=== PATIENT | male | born 1950 | race Caucasian/White ===

== ENCOUNTER 2017-09-27 08:02 | Outpatient (CLI) | payer MEDICARE ==
[~2017-09-27] VITALS: Ht 177.8 cm; Wt 129.6 kg
--- NOTE | ~2017-09-27 | HEMODYNAMI ---
PATIENT:SERVANDO AGUILAR MEDICAL RECORD: [id number] : 50 [facility] [id number] ADMISSION DATE: 09/27/17 Generatedon:09/28/201711:20 Patient name: SERVANDO AGUILAR Patient #: [id number] SSN: [id number] : 1950 Date of study: 09/28/2017 Page: Of Hemodynamic Procedure Report Patient Data Patient Demographics Procedure consent was obtained First Name: SERVANDO Gender: Male Last Name: JEFF : 1950 Middle Initial: R Age: 67 year(s) Patient #: [id number] Race: SSN: [id number] Additional ID: [id number] Contact details [address]: [address] [place] [address] State: [place] City: [place] Zip code: [address] Admission Admission Data Admission Date: 09/27/2017 Admission Time: 8:02 Room #: 2123 Lab Results Lab Result Date: 09/27/2017 Lab Result Time: 0:00 Biochemistry Name Units Result Min Max BUN mg/dl 23 --(----)-* 7 18 Creatinine mg/dl 1.1 --(--*-)-- 0.6 1.3 CBC Name Units Result Min Max Hemoglobin g/dl 13.6 --(*---)-- 13.5 17.5 Procedure Procedure Types Cath Procedure PCI Procedure Coronary Stent Coronary Stent Initial Procedure Description Procedure Date Procedure Date: 09/28/2017 Procedure Start Time: 11:02 Procedure End Time: 11:19 Procedure Staff Name Function Marline Mccoy RT Scrub Jorgito Adams RN Nurse Romulo Rojas MD Performing Physician Lupe Ball RT Monitor Procedure Data Cath Procedure Fluoroscopy Diagnostic fluoroscopy Total fluoroscopy Time: 1.1 time: 1.1 min min Diagnostic fluoroscopy Total fluoroscopy dose: 910 dose: 910 mGy mGy Contrast Material Contrast Material Type Amount (ml) Isovue 300 69 Entry Location Entry Primary Successful Side Size Upsize Upsize Entry Closure Succes sful Closure Location (Fr) 1 (Fr) 2 (Fr) Remarks Device Remarks Femoral Right 7 Fr Exoseal Fem stop artery Short for precaution Estimated blood loss: 10 ml Procedure Complications No complications Procedure Medications Medication Administration Route Dosage Heparin Bolus I.V. 5000 units Oxygen NC 2 l/min Lidocaine 2% added to field 20 Heparin Flush Bag added to field 2 bags (1000units/500ml NS) 0.9% NaCl I.V. 100 ml/hr Versed I.V. 1 mg Fentanyl I.V. 50 mcg Versed I.V. 1 mg Fentanyl I.V. 50 mcg Hemodynamics Rest HGB: 13.6 (g/dl) Heart Rate: 62 (bpm) Snapshots Pre Cath Intra NCS Post Cath Vital Signs Time Heart Resp SPO2 etCO2 NIBP (mmHg) Rhythm Pain Sedation Rate (ipm) (%) (mmHg) Status Level (bpm) 10:43:24 59 19 95 31.3 144/84(114) NSR 0 (11) 10(A) , No pain 10:47:46 62 15 97 36.6 137/80(113) NSR 0 (11) 10(A) , No pain 11:02:12 57 16 97 30.8 124/75(96) NSR 0 (11) 10(A) , No pain 11:09:12 58 14 93 20.2 113/70(93) NSR 0 (11) 9(A) , No pain 11:16:20 59 18 94 11.2 119/77(105) NSR 0 (11) 10(A) , No pain Medications Time Medication Route Dose Verified Delivered Reason Notes Effectiveness by by 10:45:17 Oxygen NC 2 Romulo Jamieie used for l/min Bob Adams RN procedure 10:45:22 Lidocaine 2% added 20ml Romulo Sebastian for local to vial Bob Rojas MD anesthetic field 10:45:28 Heparin Flush added 2 Romulo Romulo used for Bag to bags Bob Rojas MD procedure (1000units/500ml field NS) 10:45:36 0.9% NaCl I.V. 100 Romulo Buffie Per physician ml/hr Bob Adams RN 11:01:45 Versed I.V. 1 mg Romulo Bull for sedation Bob Adams RN 11:01:50 Fentanyl I.V. 50 Romulo Bull for sedation mcg Bob Adams RN 11:02:58 Heparin Bolus I.V. 5000 Romulo Bull for verifi ed units Bob Adams RN anticoagulation with dr rojas 11:10:01 Versed I.V. 1 mg Romulo Bull for sedation Bob Adams RN 11:10:05 Fentanyl I.V. 50 Romulo Bull for sedation mcg Bob Adams RN Procedure Log Time Note 10:30:00 Lupe Ball RT(R) sent for patient. Start room use. 10:42:01 Time tracking: Regular hours (M-F 7:00 - 5:00) 10:42:05 Plan of Care:Hemodynamics will remain stable., Cardiac rhythm will remain stable., Comfort level will be maintained., Respiratory function will remain adequate., Patient/ family verbilizes understanding of procedure., Procedure tolerated without complication., Recovers from procedure without complications.. 10:42:16 Patient received from Med II to CCL 2 Alert and oriented. Tansferred to table in Supine position. 10:42:17 Correct patient and procedure confirmed by team. 10:42:17 Warm blankets applied, and vega hugger turned on for patient comfort. 10:42:19 Signed procedure consent form obtained from patient. 10:42:20 ECG and BP/O2 sat monitors applied to patient. 10:42:21 Vital chart was started 10:42:22 Baseline sample Acquired. 10:42:25 Rhythm: sinus rhythm 10:42:26 Full Disclosure recording started 10:42:30 H&P Date Dictated: 09/28/2017 Within 30 days and on chart., H&P Addendum completed by physician on day of procedure. (MUST COMPLETE FOR ALL OUTPATIENTS). 10:42:32 Pre-op teaching completed and patient verbalized understanding. 10:42:32 Pre-procedure instructions explained to patient. 10:42:34 Family in patients room. 10:42:36 Patient NPO since Midnight. 10:42:37 Is the patient allergic to Iodine/contrast media? No. 10:42:38 Was the patient premedicated? No 10:42:40 Is patient on blood thinner?Yes 10:42:42 ACC The patient was administered the following blood thiners within the last 24 hours: ACCPlavix 10:45:09 Patient diabetic? No. 10:45:17 Oxygen 2 l/min NC was administered by Jorgito Adams RN; used for procedure; 10:45:19 Snore? Yes 10:45:20 Sleep apnea? Yes 10:45:21 Deviated septum? No 10:45:22 Lidocaine 2% 20ml vial added to field was administered by Romulo Rojas MD; for local anesthetic; 10:45:26 Dentures? No ? 10:45:28 Heparin Flush Bag (1000units/500ml NS) 2 bags added to field was administered by Romulo Rojas MD; used for procedure; 10:45:31 Patient pain scale 0/10 ?. 10:45:36 0.9% NaCl 100 ml/hr I.V. was administered by Jorgito Adams RN; Per physician; 10:45:39 IV patent on arrival in left forearm with 0.9% NaCl at [facility]. 10:45:43 Lab results completed and on chart. 10:45:46 Right groin area was prepped with chlora-prep and draped in sterile fashion 10:45:47 Alarms reviewed by R. N. 10:45:48 Physician paged 10:45:48 Sharps counted by scrub and verified by R.N. 10:46:38 Use device set Femoral Dx 11:00:54 Physician arrived 11:00:54 --------ALL STOP TIME OUT------ 11:00:55 Final Timeout: patient, procedure, and site verified with staff and physician. All members of the team are in agreement. 11:00:57 Right groin site verified by team. 11:01:03 Physical assessment completed. ASA score P 2 - A patient with mild systemic disease as per Romulo Rojas MD. 11:01:07 Sedation plan: IV Moderate Sedation Medication:Versed, Fentanyl 11:01:35 Zero performed for pressure channel P1 11:01:45 Versed 1 mg I.V. was administered by Jorgito Adams RN; for sedation; 11:01:50 Fentanyl 50 mcg I.V. was administered by Jorgito Adams RN; for sedation; 11:02:14 Procedure started. 11:02:14 Full Disclosure recording started 11:02:22 Local anesthetic to right femoral artery with Lidocaine 2% by Romulo Rojas MD.INITIAL ACCESS ONLY 11:02:36 A 7 Fr Short sheath was inserted into the Right Femoral artery 11:02:56 GUIDE 7FR AR 2.0 catheter ([id number]) opened to sterile field. 11:02:58 Heparin Bolus 5000 units I.V. was administered by Jorgito Adams RN; for anticoagulation; verified with dr roajs 11:02:59 Proceeding to intervention. 11:03:07 7 Fr AR2 guide catheter was inserted over the wire 11:03:39 choice pt ex wire advanced. 11:05:27 Wire removed. 11:06:11 Balloon removed over the wire. 11:06:43 WHISPER 300cm guide wire ([id number]) opened to sterile field. 11:07:37 The EUPHORA 2.5 x 15 Balloon ([id number]) was advanced and then removed because of failure to cross lesion 11:08:07 Inflate balloon Inflation number: 1 A EMERGE OTW 2.5 x 15 balloon ([id number]) was prepped and advanced across the Dist RCA, then inflated to 9 RENNY for 0:05 (min:sec). 11:08:14 Balloon removed over the wire. 11:09:43 Place stent Inflation Number: 2 A INTEGRITY OTW 2.5 X 12 stent ([id number]) was prepped and advanced across the Dist RCA. The stent was deployed at 11 RENNY for 0:10 (min:sec). 11:10:01 Versed 1 mg I.V. was administered by Jorgito Adams RN; for sedation; 11:10:05 Fentanyl 50 mcg I.V. was administered by Jorgito Adams RN; for sedation; 11:11:32 EXOSEAL 7Fr (EX700) opened to sterile field. 11:11:53 Wire removed. 11:11:54 Guide catheter removed. 11:12:21 FEMSTOP Gold ([id number]) opened to sterile field. 11:12:53 Sheath removed intact; hemostasis achieved with Exoseal to the Right Femoral artery. 11:12:55 Procedure ended.(Physican Out) 11:13:05 Fluoroscopy time 01.10 minutes. 11:13:09 Fluoroscopy dose: 910 mGy 11:13:09 Flurop Dose total: 910 11:13:12 Contrast amount:Isovue 300 69ml. 11:13:13 Sharps counted by scrub and verified by R.N. 11:13:25 Post right femoral artery:unstable 11:13:45 Femstop placed over the right femoral artery at 100 mmHg. Hemostasis achieved. 11:13:54 Post-procedure physical assessment completed. ASA score P 2 - A patient with mild systemic disease as per Romulo Rojas MD. 11:13:57 Post procedure rhythm: unchanged. 11:14:00 Estimated blood loss: 10 ml 11:14:01 Post procedure instruction explained to patient.Patient verbalizes understanding. 11:14:12 Procedure type changed to Cath procedure, PCI procedure, Coronary Stent, Coronary Stent Initial 11:14:14 Procedure and supply charges have been captured, reviewed, submitted and are correct. 11:14:48 Use device set Femoral Dx 11:14:50 ACIST Syringe (36107) opened to sterile field. 11:14:51 Bag Decanter (2002S) opened to sterile field. 11:14:52 Medline Cath Pack ([id number]) opened to sterile field. 11:14:54 DIAGNOSTIC WIRE .035 260cm J wire (847669) opened to sterile field. 11:14:55 ACIST Hand Control (98470) opened to sterile field. 11:14:56 ACIST Manifold (93896) opened to sterile field. 11:14:58 Tegaderm 4 x 4 (1626W) opened to sterile field. 11:14:59 PERCUTANEOUS ENTRY 19GA needle opened to sterile field. 11:15:15 Procedure and supply charges have been captured, reviewed, submitted and are correct. 11:15:37 Procedure Complication : No complications 11:18:59 See physician's report for complete and final results. 11:19:03 Patient transfered to [facility] with Stretcher. 11:19:06 Procedure ended. 11:19:06 Full Disclosure recording stopped Intervention Summary Intervention Notes Time ActionType Lesion and Equipment Action# Pressure Duration Attributes Used 11:07:37 Discard EUPHORA 2.5 Balloon x 15 Balloon ([id number]) 11:08:07 Inflate Dist RCA EMERGE OTW 1 9 00:05 balloon 2.5 x 15 balloon ([id number]) 11:09:43 Place stent Dist RCA INTEGRITY 2 11 00:10 OTW 2.5 X 12 stent ([id number]) Device Usage Item Name Manufacture Quantity Catalog Number Hospital Part Current Min imal Lot# / Charge Number Stock Stock Serial# Code GUIDE 7FR AR Medtronic 1 [id number] 785874 041934 0 2.0 catheter ([id number]) WHISPER Galaviz 1 [id number] 124185 428533 517448 5 300cm guide Vascular wire ([id number]) EUPHORA 2.5 Medtronic 1 [id number] 188995 691343 042595 5 [id number] x 15 Balloon ([id number]) EMERGE OTW [place] 1 [id number] 112147 603435 620778 5 [id number] 2.5 x 15 Scientific balloon ([id number]) INTEGRITY Medtronic 1 [id number] 897093 751574 3 [id number] OTW 2.5 X 12 stent ([id number]) EXOSEAL 7Fr Cardinal 1 EX700 696121 291663 042774 5 (EX700) Health FEMSTOP Gold [facility] [place] 1 [id number] 783071 505344 794595 5 ([id number]) ACIST Acist 1 29738 676584 837766 331218 20 Syringe Medical (86486) Systems Inc Bag Decanter Microtek 1 2002S 657851 87034 329615 5 (2002S) Medical Inc. Medline Cath Cardinal 1 [id number] 275601 87286 970585 5 Pack Health ([id number]) DIAGNOSTIC [facility] [place] 1 791537 671127 701662 521824 30 WIRE .035 260cm J wire (062296) ACIST Hand Acist 1 41343 162280 753939 834143 5 Control Medical (58036) Systems Inc ACIST Acist 1 35586 025823 606325 653613 5 Manifold Medical (84672) Systems Inc Tegaderm 4 x 3M 1 1626W 537746 530747 640042 5 4 (1626W) PERCUTANEOUS Cook Medical 1 O58483 400905 806551 5 ENTRY 19GA needle Signature Audit [place] Stage Time Signature Unsigned Intra-Procedure 09/28/2017 Lupe Ball 11:20:07 AM RT(R) Signatures Monitor : Lupe Ball Signature : RT Date : Time : [id number] [place] [address]
--- NOTE | ~2017-09-27 | DS ---
PATIENT:SERVANDO AGUILAR :50 MEDICAL RECORD: [id number] DISCHARGE SUMMARY ADMISSION DATE: 09/27/17 DISCHARGE DATE: 09/28/17 DISCHARGE DIAGNOSES: 1. Unstable angina. 2. Coronary artery disease. 3. PTCA stent RCA and LAD this admission. HOSPITAL COURSE: Mr. Aguilar presents with anginal symptomatology, found to have 3-vessel coronary artery disease, underwent successful PTCA stent of the RCA and LAD, was discharged home. He will follow up in 1 week for PTCA stent of the left circumflex. He was previously on Coumadin. He is maintaining sinus rhythm. His Coumadin was discontinued. He was discharged on aspirin and Plavix. TRANSINT:[id number] Voice Confirmation ID: [id number] DOCUMENT ID: [id number] AHSAN CASTANEDA MD at 1403 CC: [id number] DICTATION DATE: 09/28/17 1115 HEAVY FORGING MACHINE OPERATOR: 09/28/17 1241 DEP CLI 09/28/17 [address] [place] [address]
--- NOTE | ~2017-09-27 | OP ---
PATIENT NAME: SERVANDO AGUILAR MEDICAL RECORD: [id number] :50 LOCATION:D.CAT ADMISSION DATE: SURGEON: AHSAN CASTANEDA MD DATE OF OPERATION: 09/27/2017 PROCEDURES: 1. PTCA and stent of LAD diagonal. 2. Left heart catheterization. 3. Selective coronary angiography. 4. Left ventriculogram. INDICATION: Angina and coronary artery disease. PROCEDURE IN DETAIL: After informed consent was obtained and after a detailed explanation of risks, benefits as well as alternative therapies, the patient elected to proceed with angiogram and angioplasty. The right radial area was prepped and draped in normal sterile fashion. Right radial artery was cannulated via modified Seldinger technique with placement of 6-Kazakh sheath. All catheters exchanged through this sheath. FINDINGS: Left ventriculogram was performed in standard 30-degree DONALD view, reveals good cardiac wall motion throughout all segments. Overall ejection fraction estimated 60%. SELECTIVE CORONARY ANGIOGRAPHY: 1. Left main is with no significant angiographic disease. 2. Left anterior descending has previously placed stents, these are widely patent. There is a relatively large diagonal system that has 85% stenosis in the proximal aspect. 3. Left circumflex has at least 2 areas of 80% to 85% stenosis. 4. Right coronary has moderate irregularities. In the distal right coronary, there is at least an 80% stenosis. PTCA AND STENT OF THE LAD DIAGONAL: The stent used was 2.5 x 18 mm Integrity. Result was 0% residual stenosis. OVERALL IMPRESSION: Successful PTCA and stent of the LAD diagonal going from 85% initial stenosis to 0% residual. TRANSINT:[id number] Voice Confirmation ID: [id number] DOCUMENT ID: [id number] AHSAN CASTANEDA MD at 1403 CC: [id number] DICTATION DATE: 09/27/17 1128 DELIVERY DRIVER/CUSTOMER SERVICE: 09/27/17 1327 DEP CLI 09/28/[address] [address]
--- NOTE | ~2017-09-27 | OP ---
PATIENT NAME: SERVANDO AGUILAR MEDICAL RECORD: [id number] :50 LOCATION:D.CAT ADMISSION DATE: SURGEON: AHSAN CASTANEDA MD DATE OF OPERATION: 09/28/2017 PROCEDURES: 1. PTCA stent RCA. 2. Selective coronary angiography. INDICATION: Angina and coronary artery disease. PROCEDURE IN DETAIL: After informed consent was obtained and after a detailed description of the risks, benefits as well as alternative therapies, the patient elected to proceed with angiogram and angioplasty. The right femoral area was prepped and draped in normal sterile fashion. Right femoral artery was cannulated via modified Seldinger technique with placement of 7-[place]ozambican sheath. All catheters exchanged through this sheath. FINDINGS: The right coronary artery has 90% stenosis distally. This was addressed with a 2.5 x 12 mm Integrity. Result was 0% residual stenosis. OVERALL IMPRESSION: Successful percutaneous transluminal coronary angioplasty stent of the right coronary artery going from 90% initial stenosis to 0% residual stenosis. TRANSINT:[id number] Voice Confirmation ID: [id number] DOCUMENT ID: [id number] AHSAN CASTANEDA MD at 1403 CC: [id number] DICTATION DATE: 09/28/17 1116 JEWELRY REPAIRER: 09/28/17 1141 DEP CLI 09/28/17 [id number] [place] [address]
--- NOTE | ~2017-09-27 | HEMODYNAMI ---
PATIENT:SERVANDO AGUILAR MEDICAL RECORD: [id number] : 50 [id number] ADMISSION DATE: 09/27/17 Generatedon:09/27/201711:34 Patient name: SERVANDO AGUILAR Patient #: [id number] SSN: [id number] : 1950 Date of study: 09/27/2017 Page: Of Hemodynamic Procedure Report Patient Data Patient Demographics Procedure consent was obtained First Name: SERVANDO Gender: Male Last Name: JEFF : 1950 [facility] Initial: R Age: 67 year(s) Patient #: [id number] Race: SSN: [id number] Additional ID: [id number] Contact details Address: [address] [place] [address] ROAD State: [place] City: [place] Zip code: [address] Admission Admission Data Admission Date: 09/27/2017 Admission Time: 8:02 Lab Results Lab Result Date: 09/27/2017 Lab Result Time: 0:00 Biochemistry Name Units Result Min Max BUN mg/dl 23 --(----)-* 7 18 Creatinine mg/dl 1.1 --(--*-)-- 0.6 1.3 CBC Name Units Result Min Max Hemoglobin g/dl 13.6 --(*---)-- 13.5 17.5 Procedure Procedure Types Cath Procedure Diagnostic Procedure [facility] w/Coronaries Sedation Charges Moderate Sedation up to 15 minutes PCI Procedure Coronary Stent Coronary Stent Initial Procedure Description Procedure Date Procedure Date: 09/27/2017 Procedure Start Time: 11:10 Procedure End Time: 11:26 Procedure Staff Name Function Romulo Rojas MD Performing Physician Marline Mccoy RT Monitor Lupe Ball RT Scrub Aydin Knapp RN Nurse Procedure Data Cath Procedure Fluoroscopy Diagnostic fluoroscopy Total fluoroscopy Time: 4.2 time: 4.2 min min Diagnostic fluoroscopy Total fluoroscopy dose: dose: 1244 mGy 1244 mGy Contrast Material Contrast Material Type Amount (ml) Isovue 300 89 Entry Location Entry Primary Successful Side Size Upsize Upsize Entry Closure Duran ccessful Closure Location (Fr) 1 (Fr) 2 (Fr) Remarks Device Remarks Radial Right 6 Fr Mechanical artery Short Compression Estimated blood loss: 5 ml Diagnostic catheters Device Type Used For End Catheter Placement DIAGNOSTIC Troy 110cm 5 Multi-vessel Fr catheter ([id number]) Angiography Procedure Complications No complications Procedure Medications Medication Administration Route Dosage Oxygen etCO2 Nasal cannula 2 l/min Heparin Flush Bag added to field 2 bags (1000units/500ml NS) 0.9% NaCl I.V. 100 ml/hr Radial Cocktail added to field 1 syringe (Verapomil 2mg/Nitro 400mcg/Heparin 1500units) Fentanyl I.V. 50 mcg Versed I.V. 1 mg Fentanyl I.V. 50 mcg Versed I.V. 1 mg Radial Cocktail I.A. 1 syringe (Verapomil 2mg/Nitro 400mcg/Heparin 1500units) Heparin Bolus I.V. 4000 units Integrilin (Bolus I.V. 11.2 ml 2mg/ml) Integrilin (Bolus wasted 8.8 ml 2mg/ml) Fentanyl I.V. 25 mcg Plavix P.O. 600 mg Hemodynamics Rest HGB: 13.6 (g/dl) Heart Rate: 68 (bpm) Pressure Samples Time Site Value (mmHg) Purpose Heart Use Rate(bpm) 11:14 LV 61/22,24 Snapshot 88 Snapshots Pre Cath Intra NCS Post Cath Vital Signs Time Heart Resp SPO2 etCO2 NIBP (mmHg) Rhythm Pain Sedation Rate (ipm) (%) (mmHg) Status Level (bpm) 10:44:48 66 16 94 0 142/89(112) NSR 0 (11) 10(A) , No pain 10:49:11 68 17 98 37.5 139/89(121) NSR 0 (11) 10(A) , No pain 10:53:37 65 17 95 34.5 131/79(108) NSR 0 (11) 10(A) , No pain 10:57:55 62 18 94 0 127/87(104) NSR 0 (11) 10(A) , No pain 11:02:19 64 19 95 15.7 120/79(109) NSR 0 (11) 10(A) , No pain 11:06:39 57 19 96 36.8 122/79(91) NSR 0 (11) 10(A) , No pain 11:11:01 61 19 93 33.8 121/76(102) NSR 0 (11) 10(A) , No pain 11:15:28 64 17 93 21.7 102/67(92) NSR 0 (11) 9(A) , No pain 11:19:44 66 18 94 0 119/73(86) NSR 0 (11) 9(A) , No pain 11:24:04 68 18 94 12.7 116/72(89) NSR 0 (11) 9(A) , No pain 11:29:38 64 18 94 31.5 121/77(110) NSR 0 (11) 10(A) , No pain Medications Time Medication Route Dose Verified Delivered Reason Not es Effectiveness by by 10:50:12 Oxygen etCO2 2 l/min Romulo Perrin Per physician Nasal Bob Knapp RN cannula 10:50:21 Heparin Flush added 2 bags Romulo Perrin used for Bag to Bob Knapp RN procedure (1000units/500ml field NS) 10:50:29 0.9% NaCl I.V. 100 Romulo Perrin Per physician ml/hr Bob Knapp RN 10:50:36 Radial Cocktail added 1 Romulo Perrin used for (Verapomil to syringe Bob Knapp RN procedure 2mg/Nitro field 400mcg/Heparin 1500units) 11:10:48 Fentanyl I.V. 50 mcg Romulo Perrin for sedation Bob Knapp RN 11:10:55 Versed I.V. 1 mg Romulo Perrin for sedation Bob Knapp RN 11:12:28 Fentanyl I.V. 50 mcg Romulo Perrin for sedation Bob Knapp RN 11:12:32 Versed I.V. 1 mg Romulo Perrin for sedation Bob Knapp RN 11:12:39 Radial Cocktail I.A. 1 Romulo Sebastian for (Verapomil syringe Bob Rojas MD vasodilation 2mg/Nitro 400mcg/Heparin 1500units) 11:18:46 Fentanyl I.V. 25 mcg Romulo Perrin for sedation Bob Knapp RN 11:20:24 Heparin Bolus I.V. 4000 Romulo Perrin for units Bob Knapp RN anticoagulation 11:20:36 Integrilin I.V. 11.2 ml Romulo Perrin for (Bolus 2mg/ml) Bob Knapp RN antiplatelet therapy 11:23:37 Integrilin wasted 8.8 ml Romulo Perrin for (Bolus 2mg/ml) Bob Knapp RN antiplatelet therapy 11:25:00 Plavix P.O. 600 mg Romulo Perrin for Bob Knapp RN antiplatelet therapy Procedure Log Time Note 10:20:18 Marline Mccoy RT(R) sent for patient. Start room use. 10:31:01 Informed consent obtained and on chart 10:31:19 Time tracking: Regular hours (M-F 7:00 - 5:00) 10:31:22 Plan of Care:Hemodynamics will remain stable., Cardiac rhythm will remain stable., Comfort level will be maintained., Respiratory function will remain adequate., Patient/ family verbilizes understanding of procedure., Procedure tolerated without complication., Recovers from procedure without complications.. 10:43:32 Vital chart was started 10:46:35 Patient received from Pre/Post Procedure Room to CCL 2 Alert and oriented. Tansferred to table in Supine position. 10:46:36 Warm blankets applied, and vega hugger turned on for patient comfort. 10:46:37 Correct patient and procedure confirmed by team. 10:46:37 ECG and BP/O2 sat monitors applied to patient. 10:46:38 Baseline sample Acquired. 10:46:44 Rhythm: sinus rhythm 10:46:45 Full Disclosure recording started 10:46:54 H&P Date Dictated: 09/27/2017 Within 30 days and on chart., H&P Addendum completed by physician on day of procedure. (MUST COMPLETE FOR ALL OUTPATIENTS). 10:46:55 Pre-procedure instructions explained to patient. 10:46:56 Pre-op teaching completed and patient verbalized understanding. 10:46:58 Family in waiting room. 10:46:59 Patient NPO since Midnight. 10:47:02 Is the patient allergic to Iodine/contrast media? No. 10:47:03 Was the patient premedicated? No 10:47:04 Is patient on blood thinner?Yes 10:48:08 coumadin stopped on 09/23/17 10:48:10 Patient diabetic? Yes. 10:48:12 If diabetic: On Metformin? Yes 10:48:37 If on Metformin: Last Dose? 09/26/2017 10:48:40 Previous problem with sedation/anesthesia? No ? 10:48:42 Snore? Yes 10:48:42 Sleep apnea? Yes 10:48:43 Deviated septum? No 10:48:44 Opens mouth fully? Yes 10:48:45 Sticks out tongue? Yes 10:48:47 Airway obstruction? No ? 10:48:49 Dentures? No ? 10:48:52 Pre procedure: right dorsailis pedis pulse 2+ Normal; easily identifiable; not easily obliterated 10:48:55 Pre procedure: left dorsailis pedis pulse 2+ Normal; easily identifiable; not easily obliterated 10:48:58 Patient pain scale 0/10 ?. 10:49:03 IV patent on arrival in left forearm with 0.9% NaCl at [facility]. 10:49:07 Lab results completed and on chart. 10:49:16 Right Radial & Right Groin area was prepped with chlora-prep and draped in sterile fashion 10:49:17 Alarms reviewed by R. N. 10:49:17 Sharps counted by scrub and verified by R.N. 10:50:12 Oxygen 2 l/min etCO2 Nasal cannula was administered by Aydin Knapp RN; Per physician; 10:50:21 Heparin Flush Bag (1000units/500ml NS) 2 bags added to field was administered by Aydin Knapp RN; used for procedure; 10:50:29 0.9% NaCl 100 ml/hr I.V. was administered by Aydin Knapp RN; Per physician; 10:50:36 Radial Cocktail (Verapomil 2mg/Nitro 400mcg/Heparin 1500units) 1 syringe added to field was administered by Aydin Knapp RN; used for procedure; 11:08:15 Physician arrived 11:08:16 --------ALL STOP TIME OUT------ 11:08:16 Final Timeout: patient, procedure, and site verified with staff and physician. All members of the team are in agreement. 11:08:19 Right Radial & Right Groin site verified by team. 11:08:22 Physical assessment completed. ASA score P 2 - A patient with mild systemic disease as per Romulo Rojas MD. 11:08:25 Sedation plan: IV Moderate Sedation Medication:Versed, Fentanyl 11:08:39 Procedure started. 11:10:43 Local anesthetic to right radial artery with Lidocaine 2% by Romulo Rojas MD.INITIAL ACCESS ONLY 11:10:48 Fentanyl 50 mcg I.V. was administered by Aydin Knapp RN; for sedation; 11:10:52 A 6 Fr Short sheath was inserted into the Right Radial artery 11:10:55 Versed 1 mg I.V. was administered by Aydin Knapp RN; for sedation; :11:25 Use device set Radial Dx or PCI 11:11:27 ACIST Syringe (20380) opened to sterile field. 11:11:27 Medline Cath Pack ([id number]) opened to sterile field. 11:11:27 Bag Decanter (2002S) opened to sterile field. 11:11:28 DIAGNOSTIC WIRE .035 260cm J wire (059043) opened to sterile field. 11:11:28 ACIST Hand Control (91120) opened to sterile field. 11:11:28 ACIST Manifold (94357) opened to sterile field. 11:11:29 Tegaderm 4 x 4 (1626W) opened to sterile field. 11:11:32 MBrace Wrist Support ([id number]) opened to sterile field. 11:11:33 SHEATH 6Fr Prelude Radial ([id number]) opened to sterile field. 11:11:58 Lab Result : BUN 23 mg/dl ::58 Lab Result : Hemoglobin 13.6 g/dl ::58 Lab Result : Creatinine 1.1 mg/dl 11:12:28 Fentanyl 50 mcg I.V. was administered by Aydin Knapp RN; for sedation; 11:12:32 Versed 1 mg I.V. was administered by Aydin Knapp RN; for sedation; ::39 Radial Cocktail (Verapomil 2mg/Nitro 400mcg/Heparin 1500units) 1 syringe I.A. was administered by Romulo Rojas MD; for vasodilation; 11:13:00 A DIAGNOSTIC Troy 110cm 5 Fr catheter ([id number]) was advanced over the wire and used for Multi-vessel Angiography. 11:14:20 LV hemodynamics recorded. 11:14:21 LV gram done using DONALD 11:14:23 Injector settings: Ml/sec: 5, Volume: 15, 11:14:29 EF : 60 % 11:15:46 LCA angiography performed. 11:15:49 Injector settings: Ml/sec: 3, Volume: 6, 11:16:11 CHOICE PT Extra Support 182cm wire ([id number]) opened to sterile field. 11:16:11 INFLATOR Merit BasixCompak (UH0768) opened to sterile field. 11:17:53 GUIDE 6FR EBU 3.5 catheter ([id number]) opened to sterile field. 11:18:02 RCA angiography performed. 11:18:06 Injector settings: Ml/sec: 3, Volume: 6, 11:18:35 Catheter removed. 11:18:36 Proceeding to intervention. 11:18:46 Fentanyl 25 mcg I.V. was administered by Aydin Knapp RN; for sedation; 11:18:49 6 Fr ebu 3.5 guide catheter was inserted over the wire 11:20:24 Heparin Bolus 4000 units I.V. was administered by Aydin Knapp RN; for anticoagulation; 11:20:36 Integrilin (Bolus 2mg/ml) 11.2 ml I.V. was administered by Aydin Knapp RN; for antiplatelet therapy; 11:21:25 choice pt wire advanced. 11:22:28 Inflate balloon Inflation number: 1 A EUPHORA 2.5 x 15 Balloon ([id number]) was prepped and advanced across the 1st Diag, then inflated to 11 RENNY for 0:10 (min:sec). 11:22:34 Balloon removed over the wire. 11:23:37 Integrilin (Bolus 2mg/ml) 8.8 ml wasted was administered by Aydin Knapp RN; for antiplatelet therapy; 11:23:46 Inflate balloon Inflation number: 2 A INTEGRITY RX 2.5 x 18 stent ([id number]) was prepped and advanced across the 1st Diag, then inflated to 11 RENNY for 0:10 (min:sec). 11:24:01 Stent catheter was removed intact over wire. 11:24:02 Wire removed. 11:24:02 Guide catheter removed. 11:25:00 Plavix 600 mg P.O. was administered by Aydin Knapp RN; for antiplatelet therapy; 11:25:19 TR BAND Large ([id number]) opened to sterile field. 11:25:30 Sheath removed intact; hemostasis achieved with Mechanical Compression to the Right Radial artery. 11:25:32 Procedure ended.(Physican Out) 11::47 Fluoroscopy time 04.20 minutes. 11::52 Fluoroscopy dose: 1244 mGy 11::52 Flurop Dose total: 1244 11:25:56 Contrast amount:Isovue 300 89ml. 11::57 Sharps counted by scrub and verified by R.N. 11::58 Insertion/operative site no bleeding no hematoma. 11:26:02 TR band inflated with 10cc of air. 11:26:07 Post right radial artery:stable 11:26:08 Post Procedure Pulses reassessed and unchanged 11:26:11 Post procedure rhythm: unchanged. 11:26:13 Estimated blood loss: 5 ml 11::14 Post procedure instruction explained to patient.Patient verbalizes understanding. 11:26:15 Patient needs reinforcement of post procedure teaching. 11:26:29 Procedure type changed to Cath procedure, Diagnostic procedure, LHC, LHC w/Coronaries, Sedation Charges, Moderate Sedation up to 15 minutes, PCI procedure, Coronary Stent, Coronary Stent Initial 11::29 Procedure and supply charges have been captured, reviewed, submitted and are correct. 11:26:33 Procedure Complication : No complications 11:26:35 Vital chart was stopped 11:26:36 See physician's report for complete and final results. 11:26:44 Report given to Pre/Post Procedure Room. 11::47 Patient transfered to Pre/Post Procedure Room with Stretcher. 11:26:49 Procedure ended. 11:26:49 Full Disclosure recording stopped 11::57 ACC-PCI Only Patient was given prescriptions, or instructed by Romulo Rojas MD to start/continue the following medications upon discharge: Plavix 11:26:58 End room use (Document Last) Intervention Summary Intervention Notes Time ActionType Lesion and Equipment Action# Pressure Duration Attributes Used 11:22:28 Inflate 1st Diag EUPHORA 2.5 1 11 00:10 balloon x 15 Balloon ([id number]) 11:23:46 Inflate 1st Diag INTEGRITY RX 2 11 00:10 balloon 2.5 x 18 stent ([id number]) Device Usage Item Name Manufacture Quantity Catalog Number Hospital Part Current M inimal Lot# / Charge Number Stock Stock Serial# Code ACIST Syringe Acist 1 78229 940397 838172 429524 2 0 (46461) Medical Systems Inc Medline Cath Cardinal 1 [id number] 822175 27356 365514 5 Pack Health ([id number]) Bag Decanter Microtek 1 2001S 177001 49563 668567 5 (2001S) Medical Inc. DIAGNOSTIC WIRE St Ruben 1 355150 646434 267119 362679 3 0 .035 260cm J wire (967059) ACIST Hand Acist 1 60380 583757 017483 093623 5 Control (87925) Medical Systems Inc ACIST Manifold Acist 1 42509 817376 099550 633592 5 (74911) Medical Systems Inc Tegaderm 4 x 4 3M 1 1626W 261456 759288 972406 5 (1626W) MBrace Wrist Advanced 1 140-0250-00 235304 09105 135522 5 Support Vascular ([id number]) Dynamics SHEATH 6Fr Merit 1 [id number] 282198 422552 326799 5 Prelude Radial Medical ([id number]) DIAGNOSTIC Terumo 1 40-4093 435237 663039 961694 5 Troy 110cm 5 Fr catheter (209571) CHOICE PT Extra Steen 1 [id number] 407102 002769 313455 5 Support 182cm Scientific wire ([id number]) INFLATOR Merit Merit 1 WY6026 383903 024160 867070 1 5 Synference (LC4636) GUIDE 6FR EBU Medtronic 1 [id number] 716643 92458 873673 3 3.5 catheter ([id number]) EUPHORA 2.5 x Medtronic 1 [id number] 334625 500811 953155 5 15 Balloon ([id number]) INTEGRITY RX Medtronic 1 [id number] 467393 197360 544589 5 2.5 x 18 stent ([id number]) TR BAND Large Terumo 1 [id number] 074118 844461 541745 4 0 ([id number]) Signature Audit [place] Stage Time Signature Unsigned Intra-Procedure 09/27/2017 Marline Mccoy 11:34:33 AM RT(R) Signatures Monitor : Marline Mccoy RT Signature : Date : Time : [facility] [address] [place] [address]
[2017-09-27] MEDS ORDERED: FUROSEMIDE40 MG PO (08:36)
[2017-09-27] MEDS ORDERED: GLUCOPHAGE1000 MG PO (08:36)
[2017-09-27] MEDS ORDERED: ZESTORETIC 20/21 TAB PO (08:38)
[2017-09-27] MEDS ORDERED: BETAPACE 80 MG80 MG PO (08:38)
[2017-09-27] MEDS ORDERED: PRAVACHOL80 MG PO (08:39)
[2017-09-27] MEDS ORDERED: OMEPRAZOLE20 M1 PO (08:39)
[2017-09-27] MEDS ORDERED: K-DUR20 MEQ PO (08:40)
[2017-09-27] MEDS ORDERED: COUMADIN6 MG PO (08:40)
[2017-09-27] MEDS ORDERED: MIRAPEX0.75 MG PO ×2 (08:41)
[2017-09-27 08:50] VITALS: BP 145/82; BMI 40.8
[2017-09-27 08:57] LABS: BASOPHILS 0.3 % (0-2); EOSINOPHILS 6.6 % (0-7); HEMATOCRIT 40.5 % (42.0-54.0); HEMOGLOBIN 13.6 g/dL (13.5-17.5); IMMATURE GRANULOCYTES 0.3 % (0-5); MCH 29.7 pg (26.0-34.0); MCHC 33.6 g/dL (31.0-37.0); MCV 88.4 fL (80.0-100.0); MEAN PLATELET VOLUME 9.8 fL (7.4-10.4); MONOCYTES 8.1 % (2-11); NEUTROPHILS 71.7 % (40-80); PLATELET COUNT 176 10x3/uL (130-400); RBC 4.58 10x6/uL (4.20-6.10); RDW 13.7 % (11.5-14.5); WBC 6.6 10x3/uL (4.8-10.8)
[2017-09-27 09:05] LABS: INR 1.09 (0.85-1.17); PROTIME 13.7 SECONDS (11.6-15.0)
[2017-09-27 09:30] LABS: ANION GAP 10.7 mmol/L (8-16); CALCIUM 9.1 mg/dL (8.5-10.1); CARBON DIOXIDE 30.8 mmol/L (21.0-32.0); CREATININE - SERUM 1.1 mg/dL (0.6-1.3); POTASSIUM - SERUM 3.5 mmol/L (3.5-5.1)
[2017-09-27 14:19] VITALS: BP 157/82; BMI 40.8
[2017-09-27 16:48] VITALS: BP 121/63
[2017-09-27 20:00] VITALS: BP 146/71
[2017-09-28] VITALS: BP 144/79
[2017-09-28 04:00] VITALS: BP 121/72
[2017-09-28 08:11] VITALS: BP 128/72
[2017-09-28 09:45] VITALS: Ht 177.8 cm; Wt 129.6 kg
[2017-09-28 11:40] VITALS: BP 131/80
[2017-09-28] MEDS ORDERED: PLAVIX75 MG PO (14:53)
[2017-09-28] MEDS ORDERED: ASPIRIN81 MG PO (14:53)
[2017-09-28 15:51] VITALS: BP 132/74
== END 2017-09-28 17:26 | disposition home or self-care (01) ==
LOC: D.M2 08:02 → D.CATH 08:02 → D.M2 13:51 → D.CATH 09-28 17:26
PROVIDERS: Internal Medicine Interventional Cardiology
DX: I25.110 Atherosclerotic heart disease of native coronary artery with unstable angina pectoris (principal); R94.30 Abnormal result of cardiovascular function study, unspecified; I10 Essential (primary) hypertension; E78.5 Hyperlipidemia, unspecified; Z01.812 Encounter for preprocedural laboratory examination

== ENCOUNTER 2017-10-06 07:37 | Outpatient (CLI) | payer MEDICARE ==
[~2017-10-06] VITALS: Ht 177.8 cm; Wt 129.1 kg
--- NOTE | ~2017-10-06 | HP ---
PATIENT: SERVANDO AGUILAR MEDICAL RECORD: [id number] ACCOUNT: [id number] LOCATION:[facility] : 50 ADMISSION DATE: 10/06/17 HISTORY AND PHYSICAL EXAMINATION ADMITTING DIAGNOSES: 1. Angina. 2. Coronary artery disease. 3. Recent PTCA stent RCA and LAD with concomitant disease of the left circumflex. 4. Hypertension. 5. Hyperlipidemia. HISTORY OF PRESENT ILLNESS: Mr. Aguilar presents with unstable anginal symptomatology, found to have 3-vessel coronary artery disease, underwent successful PTCA stent of the RCA and LAD, he is now brought back for PTCA stent of the circumflex. PHYSICAL EXAMINATION: GENERAL APPEARANCE: Well-nourished, well-developed, appears stated age. Level of distress, comfortable. PSYCHIATRIC: Mental status, alert, normal affect. Orientation, oriented to time, place and person. EYES: Lids and conjunctiva, noninjected. No discharge, no pallor. ENT: Lips, teeth, gums, normal dentition. Oropharynx, no cyanosis, no pallor. NECK: Carotid arteries, bilateral normal upstroke, no bruits, no thrills. JUGULAR VEINS: No jugular venous pressure or distention. CERVICAL LYMPH NODES: Nontender, nonenlarged. THYROID: Not enlarged. Nontender. No nodules. LUNGS: Respiratory effort, unlabored. CHEST: Normal curvature. No thoracic deformity. No chest wall tenderness. Percussion, resonant. Auscultation, clear. No wheezes, no rales, no rhonchi. CARDIOVASCULAR: Precordial exam, nondisplaced. No heaves or pericardial thrills. Rate and rhythm, regular. Heart sounds, normal S1, normal S2. No S3, no gallop, no rub. Systolic murmur, not heard. Diastolic murmur, not heard. EXTREMITIES: No cyanosis, no edema. Peripheral pulses, full and equal in all extremities, except as noted. No bruits appreciated. ABDOMEN: Soft, nondistended. Normal aorta. No bruit. Nontender. No masses. Liver, nontender, no hepatomegaly. Spleen, nontender, no splenomegaly. MUSCULOSKELETAL: No joint tenderness. No joint swelling. No erythema. NEUROLOGICAL: Normal gait, normal strength, normal tone. SKIN: Warm and dry. REVIEW OF SYSTEMS: The patient reports easy bruising but reports no swollen glands. The patient reports no fever, no night sweats, no significant weight gain, no significant weight loss. No significant exercise tolerance. The patient reports no dry eyes, no irritation, no vision change. Patient reports no difficulty hearing and no ear pain. Patient reports no frequent nose bleeds or nose and sinus problems. Patient reports on arm pain on exertion. No shortness of breath while lying down. No history of heart murmur. Patient reports no cough, no wheezing or coughing up blood. Patient reports no abdominal pain, no vomiting. Normal appetite. No diarrhea and not vomiting blood. No nausea and no constipation. Patient reports no incontinence. No difficulty urinating. No hematuria. No increased frequency. Patient reports no muscle aches. No weakness, no arthralgias, no back pain. No swelling of the HISTORY AND PHYSICAL [id number] SERVANDO AGUILAR extremities. Patient reports no abnormal mole, no jaundice, no rashes. Reports no loss of consciousness. No weakness and no numbness. No seizures, dizziness, or headaches. The patient reports no depression, no sleep disturbance, feeling safe in a relationship and no alcohol abuse. Patient reports on fatigue. Reports no runny nose or sinus pressure. No itching, no hives, and no frequent sneezing. OVERALL IMPRESSION: Anginal symptomatology with significant disease of the circumflex. We will proceed with PTCA stent of the circumflex. TRANSINT:[id number] Voice Confirmation ID: [id number] DOCUMENT ID: [id number] AHSAN CASTANEDA MD at 1705 CC: [id number] DICTATION DATE: 10/06/17904 CAP SEWER: 10/06/17 1008 DEP CLI 10/06/17 [facility] [address] [place] [id number]
--- NOTE | ~2017-10-06 | HEMODYNAMI ---
PATIENT:SERVANDO AGUILAR MEDICAL RECORD: [id number] : 50 LOCATION:D.CAT ADMISSION DATE: 10/06/17 Generatedon:10/06/20179:39 Patient name: SERVANDO AGUILAR Patient #: [id number] SSN: [id number] : 1950 Date of study: 10/06/2017 Page: Of Hemodynamic Procedure Report Patient Data Patient Demographics Procedure consent was obtained First Name: SERVANDO Gender: Male Last Name: JEFF : 1950 [facility] Initial: R Age: 67 year(s) Patient #: [id number] Race: SSN: [id number] Additional ID: [id number] Contact details Address: [address] [place] [address] ROAD State: [place] City: [place] Zip code: [address] Past Medical History Allergies Allergen Reaction Date Comments Reported Other allergy 10/06/2017 Biaxin, Admission Admission Data Admission Date: 10/06/2017 Admission Time: 7:37 Procedure Procedure Types Cath Procedure Diagnostic Procedure Sedation Charges Moderate Sedation up to 30 minutes PCI Procedure Coronary Stent Coronary Stent Initial Procedure Description Procedure Date Procedure Date: 10/06/2017 Procedure Start Time: 9:07 Procedure End Time: 9:39 Procedure Staff Name Function Romulo Rojas MD Performing Physician Marline Mccoy RT Monitor Jorgito Adams RN Nurse Lupe Ball RT Scrub Procedure Data Cath Procedure Fluoroscopy Diagnostic fluoroscopy Total fluoroscopy Time: 6.8 time: 6.8 min min Diagnostic fluoroscopy Total fluoroscopy dose: dose: 1423 mGy 1423 mGy Contrast Material Contrast Material Type Amount (ml) Isovue 300 108 Entry Location Entry Primary Successful Side Size Upsize Upsize Entry Closure Duran ccessful Closure Location (Fr) 1 (Fr) 2 (Fr) Remarks Device Remarks Radial Right 6 Fr Mechanical artery Short Compression Femoral Right 6 Fr Exoseal artery Short Estimated blood loss: 10 ml Procedure Complications No complications Procedure Medications Medication Administration Route Dosage Oxygen NC 2 l/min Lidocaine 1% added to field 20 Heparin Flush Bag added to field 2 bags (1000units/500ml NS) 0.9% NaCl I.V. 100 ml/hr Versed I.V. 1 mg Fentanyl I.V. 50 mcg Radial Cocktail I.A. 1 syringe (Verapomil 2mg/Nitro 400mcg/Heparin 1500units) Versed I.V. 1 mg Fentanyl I.V. 50 mcg Heparin Bolus I.V. 4000 units Fentanyl I.V. 50 mcg Fentanyl I.V. 50 mcg Versed I.V. 1 mg Heparin Bolus I.V. 4000 units Integrilin (Bolus I.V. 11.3 ml 2mg/ml) Hemodynamics Rest Heart Rate: 60 (bpm) Snapshots Pre Cath Intra NCS Post Cath Vital Signs Time Heart Resp SPO2 etCO2 NIBP (mmHg) Rhythm Pain Sedation Rate (ipm) (%) (mmHg) Status Level (bpm) 8:59:22 61 19 96 0 142/75(107) NSR 0 (11) 10(A) , No pain 9:03:46 60 14 93 32.2 120/78(89) NSR 0 (11) 10(A) , No pain 9:08:04 59 14 95 31.5 118/69(94) NSR 0 (11) 9(A) , No pain 9:12:20 60 13 93 32.2 107/66(87) NSR 0 (11) 9(A) , No pain 9:16:42 61 15 94 31.5 102/57(81) NSR 0 (11) 9(A) , No pain 9:20:54 70 16 96 35.2 114/75(85) NSR 0 (11) 9(A) , No pain 9:25:08 63 17 93 27.7 118/74(96) NSR w/ ST 0 (11) 9(A) Elevation , No pain 9:29:26 63 16 93 35.2 117/75(93) NSR 0 (11) 9(A) , No pain 9:33:40 60 15 94 33.7 112/68(87) NSR 0 (11) 9(A) , No pain 9:37:56 60 16 95 31.4 106/67(84) NSR 0 (11) 10(A) , No pain Medications Time Medication Route Dose Verified Delivered Reason Notes Effectiveness by by 9:03:09 Oxygen NC 2 l/min Romulo Buffie used for Bob Adams RN procedure 9:03:16 Lidocaine 1% added 20ml Romulo Sebastian for local to vial Bob Rojas MD anesthetic field 9:03:22 Heparin Flush added 2 bags Romulo Sebastian used for Bag to Bob Rojas MD procedure (1000units/500ml field NS) 9:03:31 0.9% NaCl I.V. 100 Rmoulomario Bull Per physician ml/hr Bob Adams RN 9:04:02 Versed I.V. 1 mg Romulo Bull for sedation Bob Adams RN 9:04:08 Fentanyl I.V. 50 mcg Romulo Bull for sedation Bob Adams RN 9:10:47 Radial Cocktail I.A. 1 Romulo Sebastian for (Verapomil syringe Bob Rojas MD vasodilation 2mg/Nitro 400mcg/Heparin 1500units) 9:10:52 Versed I.V. 1 mg Romulo Bull for sedation Bob Adams RN 9:10:55 Fentanyl I.V. 50 mcg Romulo Bull for sedation Bob Adams RN 9:12:30 Heparin Bolus I.V. 4000 Romulo Bull for verif ied units Bob Adams RN anticoagulation with dr rojas 9:19:33 Fentanyl I.V. 50 mcg Romulo Bull for sedation Bob Adams RN 9:20:47 Fentanyl I.V. 50 mcg Romulo Bull for sedation Bob Adams RN 9:22:23 Versed I.V. 1 mg Romulo Bull for sedation Bob Adams RN 9:23:14 Heparin Bolus I.V. 4000 Romulo Bull for verif ied units Bob Adams RN anticoagulation with dr rojas 9:25:16 Integrilin I.V. 11.3 ml Romulo Bull for Waste d (Bolus 2mg/ml) Bob Adams RN antiplatelet 8.7 ml therapy of vial Procedure Log Time Note 8:31:38 Jorgito Adams RN sent for patient. Start room use. 8:32:24 Time tracking: Regular hours (M-F 7:00 - 5:00) 8:32:28 Plan of Care:Hemodynamics will remain stable., Cardiac rhythm will remain stable., Comfort level will be maintained., Respiratory function will remain adequate., Patient/ family verbilizes understanding of procedure., Procedure tolerated without complication., Recovers from procedure without complications.. 8:46:10 Patient received from Pre/Post Procedure Room to CCL 2 Alert and oriented. Tansferred to table in Supine position. 8:46:10 Warm blankets applied, and vega hugger turned on for patient comfort. 8:46:11 Correct patient and procedure confirmed by team. 8:46:13 Signed procedure consent form obtained from patient. 8:46:13 ECG and BP/O2 sat monitors applied to patient. 8:46:15 Full Disclosure recording started 8:58:05 Vital chart was started 8:58:09 Baseline sample Acquired. 8:58:20 Rhythm: sinus rhythm 8:58:31 H&P Date Dictated: 10/04/2017 Within 30 days and on chart., H&P Addendum completed by physician on day of procedure. (MUST COMPLETE FOR ALL OUTPATIENTS). 8:58:33 Pre-procedure instructions explained to patient. 8:58:39 Family in waiting room. 8:58:41 Patient NPO since Midnight. 8:59:00 Patient allergic to Other allergyBiaxin, 8:59:03 Is the patient allergic to Iodine/contrast media? No. 8:59:04 Was the patient premedicated? Yes 8:59:05 Is patient on blood thinner?Yes 8:59:08 ACC The patient was administered the following blood thiners within the last 24 hours: ACCPlavix 8:59:11 Patient diabetic? Yes. 8:59:12 If diabetic: On Metformin? Yes 8:59:17 If on Metformin: Last Dose? 10/03/2017 8:59:25 Snore? Yes 8:59:26 Sleep apnea? Yes 8:59:30 Airway obstruction? No ? 8:59:34 Dentures? No ? 8:59:46 Patient pain scale 0/10 ?. 9:00:10 Lab results completed and on chart. 9:00:15 Right Radial & Right Groin area was prepped with chlora-prep and draped in sterile fashion 9:00:16 Alarms reviewed by R. N. 9:00:16 Sharps counted by scrub and verified by R.N. 9:00:17 Physician paged 9:00:21 Physician arrived 9:00:21 --------ALL STOP TIME OUT------ 9:00:24 Final Timeout: patient, procedure, and site verified with staff and physician. All members of the team are in agreement. 9:00:27 Right Radial & Right Groin site verified by team. 9:00:32 Physical assessment completed. ASA score P 2 - A patient with mild systemic disease as per Romulo Rojas MD. 9:00:37 Sedation plan: IV Moderate Sedation Medication:Versed, Fentanyl 9:00:44 Use device set Femoral Dx 9:00:48 ACIST Syringe (61849) opened to sterile field. 9:00:49 Bag Decanter (2002S) opened to sterile field. 9:00:50 Medline Cath Pack ([id number]) opened to sterile field. 9:00:52 DIAGNOSTIC WIRE .035 260cm J wire (348076) opened to sterile field. 9:00:54 ACIST Hand Control (44297) opened to sterile field. 9:00:54 ACIST Manifold (00825) opened to sterile field. 9:00:56 Tegaderm 4 x 4 (1626W) opened to sterile field. 9:01:28 SHEATH 6Fr Prelude Radial ([id number]) opened to sterile field. 9:01:29 CHOICE PT Extra Support 182cm wire ([id number]) opened to sterile field. 9:01:29 INFLATOR Merit BasixCompak (OY4643) opened to sterile field. 9:03:09 Oxygen 2 l/min NC was administered by Jorgito Adams RN; used for procedure; 9:03:16 Lidocaine 1% 20ml vial added to field was administered by Romulo Rojas MD; for local anesthetic; 9:03:22 Heparin Flush Bag (1000units/500ml NS) 2 bags added to field was administered by Romulo Rojas MD; used for procedure; 9:03:31 0.9% NaCl 100 ml/hr I.V. was administered by Jorgito Adams RN; Per physician; 9:04:02 Versed 1 mg I.V. was administered by Jorgito Adams RN; for sedation; 9:04:08 Fentanyl 50 mcg I.V. was administered by Jorgito Adams RN; for sedation; 9:07:08 Procedure started. 9:07:09 Zero performed for pressure channel P1 9:07:27 Local anesthetic to right radial artery with Lidocaine 2% by Romulo Rojas MD.INITIAL ACCESS ONLY 9:07:47 GUIDE 6FR EBU 4.0 guide catheter ([id number]) opened to sterile field. 9:09:25 A 6 Fr Short sheath was inserted into the Right Radial artery 9:09:29 Proceeding to intervention. 9:09:42 6 Fr EBU 4 guide catheter was inserted over the wire 9::47 Radial Cocktail (Verapomil 2mg/Nitro 400mcg/Heparin 1500units) 1 syringe I.A. was administered by Romulo Rojas MD; for vasodilation; 9:10:52 Versed 1 mg I.V. was administered by Jorgito Adams RN; for sedation; 9:10:55 Fentanyl 50 mcg I.V. was administered by Jorgito Adams RN; for sedation; 9:11:32 choice PT ex wire advanced. 9:12:30 Heparin Bolus 4000 units I.V. was administered by Jorgito Adams RN; for anticoagulation; verified with dr rojas 9:17:12 Unable to cross lesion. Exchanged guide and wire. 9:17:31 GUIDE 6FR EBU 4.5 catheter ([id number]) opened to sterile field. 9:17:45 WHISPER 190cm wire ([id number]) opened to sterile field. 9:17:55 Wire advanced across lesion. 9:19:01 Wire removed. 9:19:01 Guide catheter removed. 9:19:33 Fentanyl 50 mcg I.V. was administered by Jorgito Adams RN; for sedation; 9:19:33 SHEATH 6Fr Prelude ([id number]) opened to sterile field. 9:19:41 Local anesthetic to right femoral artery with Lidocaine 2% by Romulo Rojas MD.ADDITIONAL ACCESS 9:20:47 Fentanyl 50 mcg I.V. was administered by Jorgito Adams RN; for sedation; 9:21:09 A 6 Fr Short sheath was inserted into the Right Femoral artery 9:22:03 6 Fr EBU 4.5 guide catheter was inserted over the wire 9:22:23 Versed 1 mg I.V. was administered by Jorgito Adams RN; for sedation; 9:23:14 Heparin Bolus 4000 units I.V. was administered by Jorgito Adams RN; for anticoagulation; verified with dr rojas 9:23:16 ST elevation. looking at the right with AR2 9:25:16 Integrilin (Bolus 2mg/ml) 11.3 ml I.V. was administered by Jorgito Adams RN; for antiplatelet therapy; Wasted 8.7 ml of vial 9:25:38 Guide catheter removed. 9:26:02 6 Fr EBU 4.5 guide catheter was inserted over the wire 9:28:55 ? wire advanced. 9:29:45 Place stent Inflation Number: 1 A INTEGRITY RX 3.5 x 18 stent ([id number]) was prepped and advanced across the Mid CX. The stent was deployed at 15 RENNY for 0:05 (min:sec). 9:31:14 The INTEGRITY RX 3.5 x 18 stent ([id number]) was advanced then removed because device failure 9:31:56 TR BAND Large ([id number]) opened to sterile field. 9:31:57 EXOSEAL 6Fr (EX600) opened to sterile field. 9:34:54 Tegaderm 4 x 4 (1626W) opened to sterile field. 9:35:18 Wire removed. 9:35:21 Guide catheter removed. 9:35:35 Sheath removed intact; hemostasis achieved with Mechanical Compression to the Right Radial artery. 9:35:41 Sheath removed intact; hemostasis achieved with Exoseal to the Right Femoral artery. 9:35:43 Procedure ended.(Physican Out) 9:36:01 Fluoroscopy time 06.80 minutes. 9:36:06 Flurop Dose total: 1423 9:36:06 Fluoroscopy dose: 1423 mGy 9:36:18 Contrast amount:Isovue 300 108ml. 9:36:19 Sharps counted by scrub and verified by R.N. 9:36:23 Insertion/operative site no bleeding no hematoma. 9:36:28 Post-op/insertion site Right Femoral artery dressed using a 4 x 4 and Tegaderm. 9:36:38 Post-op/insertion site Right Radial artery dressed using a 4 x 4 and Tegaderm. 9:36:40 Post Procedure Pulses reassessed and unchanged 9:36:43 Post-procedure physical assessment completed. ASA score P 2 - A patient with mild systemic disease as per Romulo Rojas MD. 9:36:46 Post procedure rhythm: unchanged. 9:36:49 Estimated blood loss: 10 ml 9:36:51 Post procedure instruction explained to patient.Patient verbalizes understanding. 9:37:09 Procedure type changed to Cath procedure, Diagnostic procedure, Sedation Charges, Moderate Sedation up to 30 minutes, PCI procedure, Coronary Stent, Coronary Stent Initial 9:37:11 Procedure and supply charges have been captured, reviewed, submitted and are correct. 9:39:01 Procedure Complication : No complications 9:39:04 Vital chart was stopped 9:39:05 See physician's report for complete and final results. 9:39:09 Patient transfered to Pre/Post Procedure Room with Stretcher. 9:39:11 Procedure ended. 9:39:11 Full Disclosure recording stopped 9:39:15 End room use (Document Last) Intervention Summary Intervention Notes Time ActionType Lesion and Equipment Action# Pressure Duration Attributes Used 9:29:45 Place stent Mid CX INTEGRITY RX 1 15 00:05 3.5 x 18 stent ([id number]) 9:31:14 Discard INTEGRITY RX Stent 3.5 x 18 stent ([id number]) Device Usage Item Name Manufacture Quantity Catalog Number Hospital Part Current M inimal Lot# / Charge Number Stock Stock Serial# Code ACIST Syringe Acist 1 34914 690808 911189 142882 2 0 (72173) [employer] Inc Bag Decanter Microtek 1 2001S 996279 64675 728613 5 () Medical Inc. Medline Cath Cardinal 1 [id number] 538700 48911 413163 5 [facility] ([id number]) DIAGNOSTIC WIRE St Ruben 1 363951 994399 750127 806697 3 0 .035 260cm J wire (198735) ACIST Hand Acist 1 00999 256566 428987 408977 5 Control (32342) [employer] Systems Inc ACIST Manifold Acist 1 71875 513934 800537 200196 5 (00651) Medical Systems Inc Tegaderm 4 x 4 3M 2 1626W 333578 362217 923482 5 (1626W) SHEATH 6Fr Merit 1 [id number] 995498 570762 942978 5 Prelude Radial Medical ([id number]) CHOICE PT Extra [place] 1 [id number] 215900 003787 889114 5 Support 182cm Scientific wire ([id number]) INFLATOR Merit Merit 1 NX2286 383227 644177 805781 1 5 Basixixigo Medical (QH1949) GUIDE 6FR EBU Medtronic 1 [id number] 312469 54725 200544 1 4.0 guide catheter ([id number]) GUIDE 6FR EBU Medtronic 1 [id number] 600572 33098 445067 0 4.5 catheter ([id number]) WHISPER 190cm Galaviz 1 [id number] 952207 887429 006579 5 wire Vascular ([id number]) SHEATH 6Fr Merit 1 [id number] 738155 222836 394582 5 Prelude Medical ([id number]) INTEGRITY RX Medtronic 2 [id number] 880926 201273 515090 5 [id number] 3.5 x 18 stent [id number] ([id number]) TR BAND Large Terumo 1 [id number] 304609 783560 348009 4 0 ([id number]) EXOSEAL 6Fr Cardinal 1 EX600 835142 706566 079167 1 0 (EX600) Health Signature [facility] [place] Stage Time Signature Unsigned Intra-Procedure 10/06/2017 Lupe Ball 9:39:39 AM RT(R) Signatures Monitor : Marline Mccoy RT Signature : Date : Time : [facility] [address] [place] [address]
--- NOTE | ~2017-10-06 | OP ---
PATIENT NAME: SERVANDO AGUILAR MEDICAL RECORD: [id number] :[birth year] LOCATION:D.CAT ADMISSION DATE: SURGEON: AHSAN CASTANEDA MD DATE OF OPERATION: 10/06/2017 PROCEDURES: 1. PTCA stent left circumflex. 2. Selective coronary angiography. INDICATION: Angina and coronary artery disease. PROCEDURE IN DETAIL: After informed consent was obtained and after detailed description of the risks, benefits as well as alternative therapies, the patient elected to proceed with angiogram and angioplasty. The right femoral area was prepped and draped in normal sterile fashion. Right femoral artery was cannulated via modified Seldinger technique with placement of 6-Greek sheath. All catheters exchanged through this sheath. FINDINGS: The left circumflex has 80% to 90% stenosis proximally. This was addressed with a 3.5 x 18 mm Integrity stent. Result was 0% residual stenosis. OVERALL IMPRESSION: Successful PTCA stent of the left circumflex going from 80% to 90% initial stenosis to 0% residual. TRANSINT:[id number] Voice Confirmation ID: [id number] DOCUMENT ID: [id number] AHSAN CASTANEDA MD at 1705 CC: [id number] DICTATION DATE: 10/06/17 0934 SOCIAL WORK ASSOCIATE: 10/06/17 1222 [facility] CLI 10/06/17 [address] [place] [address]
[~2017-10-06 07:37] MED LIST: ASPIRIN81 MG PO; BETAPACE 80 MG80 MG PO; COUMADIN6 MG PO; FUROSEMIDE40 MG PO; GLUCOPHAGE1000 MG PO; K-DUR20 MEQ PO; MIRAPEX0.75 MG PO; OMEPRAZOLE20 M1 PO; PLAVIX75 MG PO; PRAVACHOL80 MG PO; ZESTORETIC 20/21 TAB PO
[2017-10-06 08:11] VITALS: BP 148/78; Ht 177.8 cm; Wt 129.1 kg
[2017-10-06 08:21] LABS: BASOPHILS 0.4 % (0-2); EOSINOPHILS 6.8 % (0-7); HEMATOCRIT 39.9 % (42.0-54.0); HEMOGLOBIN 13.6 g/dL (13.5-17.5); IMMATURE GRANULOCYTES 0.1 % (0-5); LYMPHOCYTES 17.2 % (15-50); MCHC 34.1 g/dL (31.0-37.0); MCV 88.1 fL (80.0-100.0); MEAN PLATELET VOLUME 10.1 fL (7.4-10.4); MONOCYTES 7.3 % (2-11); NEUTROPHILS 68.2 % (40-80); PLATELET COUNT 177 10x3/uL (130-400); RBC 4.53 10x6/uL (4.20-6.10); WBC 6.8 10x3/uL (4.8-10.8)
[2017-10-06 08:33] LABS: CREATININE - SERUM 1.1 mg/dL (0.6-1.3); POTASSIUM - SERUM 3.8 mmol/L (3.5-5.1)
[2017-10-06 08:34] LABS: ANION GAP 11.6 mmol/L (8-16); CARBON DIOXIDE 29.2 mmol/L (21.0-32.0); PROTIME 12.8 SECONDS (11.6-15.0)
== END 2017-10-06 13:40 | disposition home or self-care (01) ==
LOC: D.CATH 07:37
PROVIDERS: Internal Medicine Interventional Cardiology
DX: I25.119 Atherosclerotic heart disease of native coronary artery with unspecified angina pectoris (principal); I10 Essential (primary) hypertension; E78.5 Hyperlipidemia, unspecified; Z01.812 Encounter for preprocedural laboratory examination

== ENCOUNTER 2017-11-13 18:17 | Emergency (ER) | payer MEDICARE ==
[~2017-11-13] VITALS: Ht 177.8 cm; Wt 127.3 kg
[2017-11-13 19:39] VITALS: Ht 177.8 cm; Wt 127.3 kg
[2017-11-13] MEDS ORDERED: VIBRAMYCIN 100100 MG PO (21:32)
[2017-11-13 21:49] VITALS: BP 142/77
== END 2017-11-13 21:50 | disposition home or self-care (01) ==
LOC: D.ER 18:17
DX: I80.3 Phlebitis and thrombophlebitis of lower extremities, unspecified (principal); R60.0 Localized edema; E11.9 Type 2 diabetes mellitus without complications; I10 Essential (primary) hypertension

== ENCOUNTER 2018-06-22 10:59 | Emergency (ER) | payer MEDICARE, MEDICAID ==
[~2018-06-22] VITALS: Ht 177.8 cm; Wt 124.5 kg
[~2018-06-22 10:59] MED LIST changes: +VIBRAMYCIN 100100 MG PO
[2018-06-22 11:05] VITALS: Ht 177.8 cm; Wt 124.5 kg
[2018-06-22] MEDS ORDERED: FARXIGA10 MG PO (11:08)
[2018-06-22] MEDS ORDERED: PROTONIX20 MG PO (11:09)
[2018-06-22] MEDS ORDERED: EPIPEN 2-P0.3 MG/0.3 IM (14:32)
[2018-06-22 14:45] VITALS: BP 131/74
== END 2018-06-22 14:40 | disposition home or self-care (01) ==
LOC: D.ER 10:59
DX: T78.3XXA Angioneurotic edema, initial encounter (principal); L50.9 Urticaria, unspecified

== ENCOUNTER 2018-10-17 10:17 | Inpatient (IN) | payer MEDICARE ==
[~2018-10-17] VITALS: Ht 177.8 cm; Wt 129.1 kg
[~2018-10-17 10:17] MED LIST changes: +EPIPEN 2-P0.3 MG/0.3 IM; +FARXIGA10 MG PO; +PROTONIX20 MG PO
[2018-10-17] MEDS ORDERED: FLOMAX0.4 MG PO (10:53)
[2018-10-17] MEDS ORDERED: COUMADIN6 MG PO (10:53)
[2018-10-17] MEDS ORDERED: ZYRTEC10 MG PO (10:54)
[2018-10-17] MEDS ORDERED: TRESIBA FL100 UNIT/1 SC (10:56)
[2018-10-17] MEDS ORDERED: NOVOLOG100 UNIT/1 SC (10:57)
[2018-10-17 12:42] VITALS: Ht 177.8 cm; Wt 129.1 kg
[2018-10-17 13:03] LABS: BASOPHILS 0.3 % (0-2); EOSINOPHILS 4.5 % (0-7); HEMATOCRIT 37.9 % (42.0-54.0); IMMATURE GRANULOCYTES 0.1 % (0-5); LYMPHOCYTES 12.3 % (15-50); MCH 25.6 pg (26.0-34.0); MCHC 31.7 g/dL (31.0-37.0); MEAN PLATELET VOLUME 9.4 fL (7.4-10.4); MONOCYTES 5.2 % (2-11); NEUTROPHILS 77.6 % (40-80); RBC 4.68 10x6/uL (4.20-6.10); RDW 16.1 % (11.5-14.5); WBC 7.3 10x3/uL (4.8-10.8)
[2018-10-17 13:16] LABS: PLATELET COUNT 222 10x3/uL (130-400)
[2018-10-17 13:22] LABS: ALBUMIN 3.1 g/dL (3.4-5.0); ANION GAP 10.4 mmol/L (8-16); BILIRUBIN - TOTAL 1.13 mg/dL (0.2-1.3); CALCIUM 8.9 mg/dL (8.5-10.1); CARBON DIOXIDE 30.7 mmol/L (21.0-32.0); CREATININE - SERUM 1.1 mg/dL (0.6-1.3); POTASSIUM - SERUM 4.1 mmol/L (3.5-5.1)
[2018-10-17 13:23] LABS: INR 1.31 (0.85-1.17); PROTIME 15.7 SECONDS (11.6-15.0)
[2018-10-17 13:44] VITALS: BP 156/81
[2018-10-17 17:13] VITALS: BP 159/84
--- NOTE | 2018-10-17 18:22 | NUR ---
I have reviewed this patient and I concur with the Shift Assessment completed by the Licensed Practical Nurse today this shift.
[2018-10-17 20:00] VITALS: BP 156/88
[2018-10-18 04:00] VITALS: BP 138/79
[2018-10-18 05:47] LABS: BASOPHILS 0.3 % (0-2); EOSINOPHILS 4.8 % (0-7); HEMATOCRIT 38.1 % (42.0-54.0); IMMATURE GRANULOCYTES 0.1 % (0-5); LYMPHOCYTES 10.4 % (15-50); MCH 25.6 pg (26.0-34.0); MCHC 31.5 g/dL (31.0-37.0); MCV 81.2 fL (80.0-100.0); MEAN PLATELET VOLUME 9.6 fL (7.4-10.4); MONOCYTES 6.4 % (2-11); PLATELET COUNT 223 10x3/uL (130-400); RBC 4.69 10x6/uL (4.20-6.10); RDW 16.2 % (11.5-14.5); WBC 7.3 10x3/uL (4.8-10.8)
[2018-10-18 06:17] LABS: ALBUMIN 3.1 g/dL (3.4-5.0); ALKALINE PHOSPHATASE 76 U/L (46-116); ALT (SGPT) 20 U/L (10-68); BILIRUBIN - TOTAL 1.03 mg/dL (0.2-1.3); CALC OSMOLALITY 281 mosm/kg (275-300); CALCIUM 8.7 mg/dL (8.5-10.1); CARBON DIOXIDE 31.6 mmol/L (21.0-32.0); CHLORIDE - SERUM 102 mmol/L (98-107); GLUCOSE 145 mg/dL (74-106); POTASSIUM - SERUM 3.8 mmol/L (3.5-5.1); SODIUM 139 mmol/L (136-145); UREA NITROGEN 16 mg/dL (7-18); eGFR NON AFRICAN AMERICAN 79 mL/min (90-120)
[2018-10-18 08:00] VITALS: BP 118/77
[2018-10-18 09:50] LABS: INR 1.55 (0.85-1.17)
--- NOTE | 2018-10-18 12:20 | NUR ---
PT RESTING IN BED. NO SIGNS OF DISTRESS. IV TO RIGHT FORARM PATENT NO REDNESS OR TENDERNESS. ON TELEMETRY 59 SB. LEGS SWOLLEN RED AND BLISTERS UPON THEM. DENIES ANY FUTHER NEED AT THIS TIME. CALL LIGHT IN REACH. BED LOW POSITION. NO FAMILY AT BEDSIDE.
[2018-10-18 15:10] VITALS: BP 138/77
--- NOTE | 2018-10-18 15:17 | NUR ---
Unna boots applied to bilateral lower extremities. Right calf = 50cm Right ankle = 27cm Left calf = 49.5cm Left ankle = 31cm Blisters noted on the calf of each leg. Pt tolerated well.
--- NOTE | 2018-10-18 18:11 | NUR ---
I have reviewed this patient and I concur with the Shift Assessment completed by the Licensed Practical Nurse today this shift.
[2018-10-18 21:01] VITALS: BP 151/80
[2018-10-19 00:48] VITALS: BP 125/73
[2018-10-19 05:25] VITALS: BP 127/74
[2018-10-19 06:40] LABS: BASOPHILS 0.3 % (0-2); EOSINOPHILS 5.5 % (0-7); HEMOGLOBIN 12.3 g/dL (13.5-17.5); IMMATURE GRANULOCYTES 0.1 % (0-5); MCH 25.7 pg (26.0-34.0); MCHC 31.5 g/dL (31.0-37.0); MCV 81.6 fL (80.0-100.0); MEAN PLATELET VOLUME 9.9 fL (7.4-10.4); MONOCYTES 7.6 % (2-11); NEUTROPHILS 74.5 % (40-80); PLATELET COUNT 242 10x3/uL (130-400); RBC 4.78 10x6/uL (4.20-6.10); RDW 16.4 % (11.5-14.5); WBC 7.4 10x3/uL (4.8-10.8)
[2018-10-19 06:50] LABS: INR 1.71 (0.85-1.17); PROTIME 19.4 SECONDS (11.6-15.0)
[2018-10-19 07:00] LABS: ALKALINE PHOSPHATASE 70 U/L (46-116); ALT (SGPT) 21 U/L (10-68); CALC OSMOLALITY 277 mosm/kg (275-300); CALCIUM 8.9 mg/dL (8.5-10.1); CARBON DIOXIDE 30.9 mmol/L (21.0-32.0); CHLORIDE - SERUM 101 mmol/L (98-107); CREATININE - SERUM 0.9 mg/dL (0.6-1.3); GLUCOSE 123 mg/dL (74-106); POTASSIUM - SERUM 3.6 mmol/L (3.5-5.1); SODIUM 138 mmol/L (136-145); UREA NITROGEN 16 mg/dL (7-18); eGFR NON AFRICAN AMERICAN 89 mL/min (90-120)
[2018-10-19 09:19] VITALS: BP 123/65
[2018-10-19 12:56] VITALS: BP 153/84
--- NOTE | 2018-10-19 15:59 | NUR ---
NOTIFIED PHYSICAL THERAPY OF CONSULT AND REQUEST FOR COMPRESSION DEVICES. PT STATED THAT THEY ARE UNABLE TO PROVIDE THE EQUIPMENT AND THAT [facility] [employer] [facility] WILL NEED TO BE NOTIFIED. [facility] [employer] [facility] NOTFIED AND THEY STATED THAT PATIENT WILL NEED TO TAKE PRESCRIPTION TO THERE OFFICE AT DISCHARGE IN MORNINGS BETWEEN 8-10 FOR MEASUREMENTS. NOTIFIED TOYA REGALADO
--- NOTE | 2018-10-19 17:00 | MORECARE ---
CASE MANAGEMENT DISCHARGE SUMMARY PATIENT: SERVANDO AGUILAR UNIT: [id number] ADM DATE: 10/17/18 AGE: 68 : 50 SEX: M ROOM/BED: D.2228 AUTHOR: GABBY,DOC PHYSICIAN: REFERRING PHYSICIAN: LOGAN TERAN MD DATE OF SERVICE: 10/19/18 Discharge Plan Patient Name: SERVANDO AGUILAR Facility: [facility]:[place] : 1950 Planned Disposition: Home Anticipated Discharge Date: Discharge Date: Expected LOS: Initial Reviewer: [email or web address] Initial Review Date: 10/19/2018 Generated: 10/19/18 6:00 pm Comments DCP- Discharge Planning Updated by [email or web address]: Jen Lamas on 10/19/18 3:[address] I called [facility] and spoke to [place], he will come this evening to the hospital to fit patient with circ- aide boots per Dr. Teran's order. DCP- Discharge Planning Updated by [email or web address]: Jen Lamas on 10/19/18 3:[address] Patient Name: SERVANDO AGUILAR Admission Status: Elective Accout number: [id number] Admission Date: 10-17-2018 : 1950 Admission Diagnosis:CELLULITIS OF LEFT LOWER LIMB Attending: LOGAN TERAN Current LOS: 2 Anticipated DC Date: Planned Disposition: Home Primary Insurance: MEDICARE A & B Discharge Planning Comments: CM met with patient to complete initial dc planning assessment. CM educated patient on the CM role and verbal consent given by patient to complete assessment. Patient lives at home alone. At discharge patient plans to return and feels this is a safe discharge. States he drove himself here, he will drive himself home CM discussed availability of home health, rehab services, and medical equipment. Patient states he would like dietary instruction on diabetic diet, I ordered a dietary consult. Also states he needs new supplies from [facility]. I called [facility] and spoke with Arleen, they are unable to service him because of past financial issues. He would need to have his sleep study and chart notes faxed to a different company ([employer] and [facility] patient cannot accept him) Patient notified. . CM will continue to follow and will assist as needed with dc plans/needs. Electric Motor Tester Assembler: Jen Cydney DCPIA - Discharge Planning Initial Assessment Updated by [email or web address]: Jen Cydney on 10/19/18 4:52 pm * Is the patient Alert and Oriented? Yes * How many steps to enter\exit or inside your home? Ramp/0 * PCP Dr. Almeida * Pharmacy [facility] * Preadmission Environment Home Alone * ADLs Independent * Equipment CPAP * List name and contact numbers for known caregivers / representatives who currently or will assist patient after discharge: Rose Talbot - [facility] - [phone] Sofie Liana - [facility] - [phone] * Verbal permission to speak to the caregivers and representatives has been obtained from the patient. Yes * Community resources currently utilized None * Additional services required to return to the preadmission environment? Yes * Can the patient safely return to the preadmission environment? Yes * Has this patient been hospitalized within the prior 30 days at any hospital? No Patient Name: SERVANDO AGUILAR Page [id number] at 1700 All edits/amendments must be made on the electronic document DICTATION DATE: 10/19/181658 COMPLEX CASE MANAGER: ANA 10/19/181658 RPT#: [id number] DC DATE: STATUS: ADM IN [facility] [address] [place] [address] END OF REPORT
[2018-10-19 18:33] VITALS: BP 131/78
--- NOTE | 2018-10-19 19:45 | NUR ---
PT SITTING UP IN BED WITHOUT DISTRESS, ALERT AND ORIENTED. STATES NO PAIN. DRESSING TO BILAT LOWER LEGS CDI. LEGS PROPPED ON PILLOWS. IV RIGHT FA SL. HR 71 SR PER TELE. DENIES NEEDS, CL IN REACH. WILL CTM
[2018-10-19 20:00] VITALS: BP 145/70
--- NOTE | 2018-10-19 23:30 | NUR ---
PT REQUESTED AND GIVEN SANDWICH TRAY. DENIES OTHER NEEDS
[2018-10-20] VITALS: BP 110/58
[2018-10-20 04:00] VITALS: BP 107/65
--- NOTE | 2018-10-20 04:38 | NUR ---
PT ASSISTED WITH BATH SET UP, CLEANED UP INDEPENDELTY. SITTING UP IN BED SIDE CHAIR. LINENS CHANGED. DENIES PAIN OR NEEDS. CL IN REACH
[2018-10-20 05:07] LABS: BASOPHILS 0.3 % (0-2); EOSINOPHILS 5.7 % (0-7); HEMATOCRIT 40.5 % (42.0-54.0); HEMOGLOBIN 12.8 g/dL (13.5-17.5); IMMATURE GRANULOCYTES 0.1 % (0-5); LYMPHOCYTES 12.5 % (15-50); MCH 25.5 pg (26.0-34.0); MCHC 31.6 g/dL (31.0-37.0); MCV 80.8 fL (80.0-100.0); MEAN PLATELET VOLUME 9.6 fL (7.4-10.4); MONOCYTES 5.5 % (2-11); NEUTROPHILS 75.9 % (40-80); PLATELET COUNT 239 10x3/uL (130-400); RBC 5.01 10x6/uL (4.20-6.10); RDW 16.4 % (11.5-14.5); WBC 7.7 10x3/uL (4.8-10.8)
[2018-10-20 05:40] LABS: INR 1.74 (0.85-1.17); PROTIME 19.7 SECONDS (11.6-15.0)
[2018-10-20 05:47] LABS: ALBUMIN 3.1 g/dL (3.4-5.0); ANION GAP 11.2 mmol/L (8-16); BILIRUBIN - TOTAL 1.02 mg/dL (0.2-1.3); CALCIUM 9.1 mg/dL (8.5-10.1); CARBON DIOXIDE 30.6 mmol/L (21.0-32.0); CREATININE - SERUM 1.2 mg/dL (0.6-1.3); POTASSIUM - SERUM 3.8 mmol/L (3.5-5.1)
[2018-10-20 09:09] VITALS: BP 114/73
--- NOTE | 2018-10-20 11:25 | MORECARE ---
CASE MANAGEMENT DISCHARGE SUMMARY PATIENT: SERVANDO AGUILAR UNIT: [id number] ADM DATE: 10/17/18 AGE: 68 : 50 SEX: M ROOM/BED: D.2228 AUTHOR: GABBYDOC PHYSICIAN: REFERRING PHYSICIAN: LOGAN TERAN MD DATE OF SERVICE: 10/20/18 Discharge Plan Patient Name: SERVANDO AGUILAR Facility: [facility]:[place] : 1950 Planned Disposition: Home Anticipated Discharge Date: Discharge Date: Expected LOS: Initial Reviewer: [email or web address] Initial Review Date: 10/19/2018 Generated: 10/20/18 12:25 pm Comments DCP- Discharge Planning Updated by [id number]: Jenaustin Lamas on 10/20/18 10:[address] I spoke with [facility], they state they had to order for his size and will be available Wednesday, or Wednesday "at the latest". I called Francia (wound care nurse), she is going to notify Dr. Teran for a plan. CM will continue to follow and assist with discharge planning/needs. DCP- Discharge Planning Updated by [email or web address]: Jen Cydney on 10/19/18 3:[address] I called [facility] and spoke to Roosevelt, he will come this evening to the hospital to fit patient with circ- aide boots per Dr. Teran's order. DCP- Discharge Planning Updated by [id number]: Jen Duransmiley on 10/19/18 3:[address] Patient Name: SERVANDO AGUILAR Admission Status: Elective Accout number: [id number] Admission Date: 10-17-2018 : 1950 Admission Diagnosis:CELLULITIS OF LEFT LOWER LIMB Attending: LOGAN TERAN Current LOS: 2 Anticipated DC Date: Planned Disposition: Home Primary Insurance: MEDICARE A & B Discharge Planning Comments: CM met with patient to complete initial dc planning assessment. CM educated patient on the CM role and verbal consent given by patient to complete assessment. Patient lives at home alone. At discharge patient plans to return and feels this is a safe discharge. States he drove himself here, he will drive himself home CM discussed availability of home health, rehab services, and medical equipment. Patient states he would like dietary instruction on diabetic diet, I ordered a dietary consult. Also states he needs new supplies from [facility]. I called [facility] and spoke with Arleen, they are unable to service him because of past financial issues. He would need to have his sleep study and chart notes faxed to a different company ([employer] and [facility] patient cannot accept him) Patient notified. . CM will continue to follow and will assist as needed with dc plans/needs. Devops Engineer: Jen Lamas DCPIA - Discharge Planning Initial Assessment Updated by [email or web address]: Jen Lamas on 10/19/18 4:52 pm * Is the patient Alert and Oriented? Yes * How many steps to enter\\exit or inside your home? Ramp/0 * PCP Dr. Almeida * Pharmacy [facility] * Preadmission Environment Home Alone * ADLs Independent * Equipment CPAP * List name and contact numbers for known caregivers / representatives who currently or will assist patient after discharge: Rose Talbot - [facility] - [phone] Sofie Gaines - [facility] - [phone] * Verbal permission to speak to the caregivers and representatives has been obtained from the patient. Yes * Community resources currently utilized None * Additional services required to return to the preadmission environment? Yes * Can the patient safely return to the preadmission environment? Yes * Has this patient been hospitalized within the prior 30 days at any hospital? No Last DP export: 10/19/18 4:00 p Patient Name: SERVANDO AGUILAR Page [id number] at 1125 All edits/amendments must be made on the electronic document DICTATION DATE: 10/20/18 112 COMPUTER ENGINEER: ANA 10/20/18 112 RPT#: [id number] DC DATE: STATUS: ADM IN [facility] [address] [place] [address] END OF REPORT
--- NOTE | 2018-10-20 11:56 | NUR ---
As per Dr. Nagy's orders [facility] came and measured pt for Circa boots, unfortunately they will not be delivered until Wednesday or Wednesday of next week (they had to order them). Discussed this with Leigh at Dr. Nagy's office and she relayed this to Dr. Nagy. It was decided that pt will go home with unna boots on to help control the edema. When José Miguel delivers the circa boots, the unna boots will come off. Discussed with pt the plan and he voiced his understanding. He did ask if, due to pain/discomfort, he had to take unna boots off what he should do. He was instructed to use BRE wraps if he felt the absolute need to remove unna boots. He voiced understanding. Unna boots were changed out during this visit and measurements are as follows: Right calf: 45cm ankle: 26.5cm Left calf: 46.6cm ankle: 27.5cm This is a marked improvement since first unna boot application on Wednesday. Wound care will continue monitoring.
--- NOTE | 2018-10-20 12:40 | MORECARE ---
CASE MANAGEMENT DISCHARGE SUMMARY PATIENT: SERVANDO AGUILAR UNIT: [id number] ADM DATE: 10/17/18 AGE: 68 : 50 SEX: M ROOM/BED: D.2228 AUTHOR: GABBY,DOC PHYSICIAN: REFERRING PHYSICIAN: LOGAN TERAN MD DATE OF SERVICE: 10/20/18 Discharge Plan Patient Name: SERVANDO AGUILAR Facility: [facility]:[place] : 1950 Planned Disposition: Home Anticipated Discharge Date: Discharge Date: Expected LOS: Initial Reviewer: [id number] Initial Review Date: 10/19/2018 Generated: 10/20/18 1:40 pm Comments DCP- Discharge Planning Updated by [email or web address]: Jen Lamas on 10/20/18 11:[address] Patient would like me to have [employer] help with getting a CPAP, he states that chart notes and sleep study should be available at Dr. Almeida's office. He states if they cannot help, "I will just get one over the internet." I called and spoke to Walt at [facility] and order and clinical faxed. Francia with wound care states Dr. Teran is going to discharge patient home with VIKRAM boots and he can leave them on until his Circ - boots come in on Wednesday or Wednesday. He states José Miguel will come to home and cut VIKRAM boots off and instruct on Circ - boots. CM will continue to follow and assist with discharge planning//needs. DCP- Discharge Planning Updated by [id number]: Jen Lamas on 10/20/18 10:[address] I spoke with [facility], they state they had to order for his size and will be available Wednesday, or Wednesday "at the latest". I called Francia (wound care nurse), she is going to notify Dr. Teran for a plan. CM will continue to follow and assist with discharge planning/needs. DCP- Discharge Planning Updated by [id number]: Jen Lamas on 10/19/18 3:[address] I called [facility] and spoke to Roosevelt, he will come this evening to the hospital to fit patient with circ- aide boots per Dr. Teran's order. DCP- Discharge Planning Updated by [id number]: Jen Lamas on 10/19/18 3:[address] Patient Name: SERVANDO AGUILAR Admission Status: Elective Accout number: [id number] Admission Date: 10-17-2018 : 1950 Admission Diagnosis:CELLULITIS OF LEFT LOWER LIMB Attending: LOGAN TERAN Current LOS: 2 Anticipated DC Date: Planned Disposition: Home Primary Insurance: MEDICARE A & B Discharge Planning Comments: CM met with patient to complete initial dc planning assessment. CM educated patient on the CM role and verbal consent given by patient to complete assessment. Patient lives at home alone. At discharge patient plans to return and feels this is a safe discharge. States he drove himself here, he will drive himself home CM discussed availability of home health, rehab services, and medical equipment. Patient states he would like dietary instruction on diabetic diet, I ordered a dietary consult. Also states he needs new supplies from [employer]. I called [facility] and spoke with Arleen, they are unable to service him because of past financial issues. He would need to have his sleep study and chart notes faxed to a different company ([employer] and [employer] [facility] patient cannot accept him) Patient notified. . CM will continue to follow and will assist as needed with dc plans/needs. Mechanical Service Technician: Jen Lamas DCPIA - Discharge Planning Initial Assessment Updated by [id number]: Jen Lamas on 10/19/18 4:52 pm * Is the patient Alert and Oriented? Yes * How many steps to enter\\exit or inside your home? Ramp/0 * PCP Dr. Almeida * Pharmacy [facility] * Preadmission Environment Home Alone * ADLs Independent * Equipment CPAP * List name and contact numbers for known caregivers / representatives who currently or will assist patient after discharge: Rose Antione - DT - [phone] Sofie Gaines - [facility] - [phone] * Verbal permission to speak to the caregivers and representatives has been obtained from the patient. Yes * Community resources currently utilized None * Additional services required to return to the preadmission environment? Yes * Can the patient safely return to the preadmission environment? Yes * Has this patient been hospitalized within the prior 30 days at any hospital? No External Providers External Provider: [facility] Next Contact Date: Service Request Date: Service Type: Resolution: Reviewer: Comments: External Provider: [facility] Next Contact Date: Service Request Date: Service Type: Resolution: Reviewer: Comments: Coverage Notice Reviewer: [id number] Terry Lamas Notice Issued Date-Time: 10/20/2018 12:24 Notice Type: Patient Choice Letter Notice Delivered To: Patient Relationship to Patient: Self Elevator Operator Freight Name: Delivery Method: HAND - Hand Delivered Pam Days: Prior Verbal Notification: Recipient Understood Notice: Yes Recipient Signature: Yes Med Rec Note Co-signed by Attending: Coverage Notice Comment: TAMMI for [employer] Last DP export: 10/20/18 10:25 a Patient Name: SERVANDO AGUILAR Page [id number] at 1240 All edits/amendments must be made on the electronic document DICTATION DATE: 10/20/18 1240 COLD WATER MACHINE OPERATOR: ANA 10/20/18 1240 RPT#: [id number] DC DATE: STATUS: ADM IN [facility] [address] [place] [address] END OF REPORT
--- NOTE | 2018-10-20 12:43 | NUR ---
PT RESTING IN BED. NO SIGNS OF DISTRESS. IV TO LEFT FORARM PATENT NO REDNESS OR TENDERNESS. ON TELEMETRY 71 SR. HAS UNNA BOOTS ON LEGS. DENIES ANY FUTHER NEED AT THIS TIME. CALL LIGHT IN REACH. BED LOW POSITION. NO FAMILY AT BEDSIDE AT THIS TIME.
[2018-10-20 13:28] VITALS: BP 102/71
--- NOTE | 2018-10-20 14:07 | NUR ---
RD Consult: Patient seen for diabetic diet education. Patient requested sample meal plans. Patient express readiness to improve diet choices. Patient demonstrated understanding of ADA diet and was very eager to learn. Verbal instructions in additon to sample meal plans and exchange list materials were provided. RD Following.
--- NOTE | 2018-10-20 14:22 | NUR ---
I have reviewed this patient and I concur with the Shift Assessment completed by the Licensed Practical Nurse today this shift.
--- NOTE | 2018-10-20 14:28 | MORECARE ---
CASE MANAGEMENT DISCHARGE SUMMARY PATIENT: SERVANDO AGUILAR UNIT: [id number] ADM DATE: 10/17/18 AGE: 68 : 50 SEX: M ROOM/BED: D.2228 AUTHOR: GABBY,DOC PHYSICIAN: REFERRING PHYSICIAN: LOGAN TERAN MD DATE OF SERVICE: 10/20/18 Discharge Plan Patient Name: SERVANDO AGUILAR Facility: [facility]:[place] : 1950 Planned Disposition: Home Anticipated Discharge Date: Discharge Date: Expected LOS: Initial Reviewer: [id number] Initial Review Date: 10/19/2018 Generated: 10/20/18 3:28 pm Comments DCP- Discharge Planning Updated by [email or web address]: Jen Lamas on 10/20/18 11:[address] Patient would like me to have [facility] help with getting a CPAP, he states that chart notes and sleep study should be available at Dr. Almeida's office. He states if they cannot help, "I will just get one over the internet." I called and spoke to Walt at [facility] and order and clinical faxed. Francia with wound care states Dr. Teran is going to discharge patient home with VIKRAM boots and he can leave them on until his Circ - boots come in on Wednesday or Wednesday. He states José Miguel will come to home and cut VIKRAM boots off and instruct on Circ - boots. CM will continue to follow and assist with discharge planning//needs. DCP- Discharge Planning Updated by [email or web address]: Jen Lamas on 10/20/18 10:[address] I spoke with [facility], they state they had to order for his size and will be available Wednesday, or Wednesday "at the latest". I called Francia (wound care nurse), she is going to notify Dr. Teran for a plan. CM will continue to follow and assist with discharge planning/needs. DCP- Discharge Planning Updated by [email or web address]: Jen Laams on 10/19/18 3:[address] I called [facility] and spoke to Roosevelt, he will come this evening to the hospital to fit patient with circ- aide boots per Dr. Teran's order. DCP- Discharge Planning Updated by [id number]: Jen Lamas on 10/19/18 3:[address] Patient Name: SERVANDO AGUILAR Admission Status: Elective Accout number: [id number] Admission Date: 10-17-2018 : 1950 Admission Diagnosis:CELLULITIS OF LEFT LOWER LIMB Attending: LOGAN TERAN Current LOS: 2 Anticipated DC Date: Planned Disposition: Home Primary Insurance: MEDICARE A & B Discharge Planning Comments: CM met with patient to complete initial dc planning assessment. CM educated patient on the CM role and verbal consent given by patient to complete assessment. Patient lives at home alone. At discharge patient plans to return and feels this is a safe discharge. States he drove himself here, he will drive himself home CM discussed availability of home health, rehab services, and medical equipment. Patient states he would like dietary instruction on diabetic diet, I ordered a dietary consult. Also states he needs new supplies from [employer]. I called [facility] and spoke with Arleen, they are unable to service him because of past financial issues. He would need to have his sleep study and chart notes faxed to a different company ([employer] and [employer] patient cannot accept him) Patient notified. . CM will continue to follow and will assist as needed with dc plans/needs. Director Account Management: Jen Lamas DCPIA - Discharge Planning Initial Assessment Updated by [id number]: Jen Lamas on 10/19/18 4:52 pm * Is the patient Alert and Oriented? Yes * How many steps to enter\\exit or inside your home? Ramp/0 * PCP Dr. Almeida * Pharmacy [facility] * Preadmission Environment Home Alone * ADLs Independent * Equipment CPAP * List name and contact numbers for known caregivers / representatives who currently or will assist patient after discharge: Rose Antione - DTR - [phone] Sofie Gaines - [facility] - [phone] * Verbal permission to speak to the caregivers and representatives has been obtained from the patient. Yes * Community resources currently utilized None * Additional services required to return to the preadmission environment? Yes * Can the patient safely return to the preadmission environment? Yes * Has this patient been hospitalized within the prior 30 days at any hospital? No External Providers External Provider: [facility] Next Contact Date: Service Request Date: Service Type: Resolution: Reviewer: Comments: Coverage Notice Reviewer: [id number] Terry Jen Lamas Notice Issued Date-Time: 10/20/2018 12:24 Notice Type: Patient Choice Letter Notice Delivered To: Patient Relationship to Patient: Self Costumed Character Entertainer Name: Delivery Method: HAND - Hand Delivered Pam Days: Prior Verbal Notification: Recipient Understood Notice: Yes Recipient Signature: Yes Med Rec Note Co-signed by Attending: Coverage Notice Comment: TAMMI for Rejie Steve DP export: 10/20/18 11:40 a Patient Name: SERVANDO AGUILAR Page [id number] at 1428 All edits/amendments must be made on the electronic document DICTATION DATE: 10/20/181427 SCADA TECHNICIAN: ANA 10/20/181427 RPT#: [id number] DC DATE: STATUS: ADM IN [facility] [address] [place] [address] END OF REPORT
--- NOTE | 2018-10-20 15:26 | MORECARE ---
CASE MANAGEMENT DISCHARGE SUMMARY PATIENT: SERVANDO AGUILAR UNIT: [id number] ADM DATE: 10/17/18 AGE: 68 : 50 SEX: M ROOM/BED: D.2228 AUTHOR: GABBY,DOC PHYSICIAN: REFERRING PHYSICIAN: LOGAN TERAN MD DATE OF SERVICE: 10/20/18 Discharge Plan Patient Name: SERVANDO AGUILAR Facility: [facility]:[place] : 1950 Planned Disposition: Home Anticipated Discharge Date: Discharge Date: Expected LOS: Initial Reviewer: [email or web address] Initial Review Date: 10/19/2018 Generated: 10/20/18 4:26 pm Comments DCP- Discharge Planning Updated by [email or web address]: Jen Lamas on 10/20/18 2:[address] Discharge order received. [facility] for [facility]. I called Gurwinder with [facility], they can see accept him and will see him on Wednesday. Home today with home health. CM will continue to follow and assist with discharge planning/needs. DCP- Discharge Planning Updated by [id number]: Jen Lamas on 10/20/18 11:[address] Patient would like me to have [facility] help with getting a CPAP, he states that chart notes and sleep study should be available at Dr. Almeida's office. He states if they cannot help, "I will just get one over the internet." I called and spoke to Walt at [facility] and order and clinical faxed. Francia with wound care states Dr. Teran is going to discharge patient home with VIKRAM boots and he can leave them on until his Circ - boots come in on Wednesday or Wednesday. He states José Miguel will come to home and cut VIKRAM boots off and instruct on Circ - boots. CM will continue to follow and assist with discharge planning//needs. DCP- Discharge Planning Updated by [id number]: Jen Lamas on 10/20/18 10:[address] I spoke with [facility], they state they had to order for his size and will be available Wednesday, or Wednesday "at the latest". I called Francia (wound care nurse), she is going to notify Dr. Teran for a plan. CM will continue to follow and assist with discharge planning/needs. DCP- Discharge Planning Updated by [id number]: Jen Duransmiley on 10/19/18 3:[address] I called [facility] and spoke to Roosevelt, he will come this evening to the hospital to fit patient with circ- aide boots per Dr. Teran's order. DCP- Discharge Planning Updated by [id number]: Jen Lamas on 10/19/18 3:[address] Patient Name: SERVANDO AGUILAR Admission Status: Elective Accout number: [id number] Admission Date: 10-17-2018 : 1950 Admission Diagnosis:CELLULITIS OF LEFT LOWER LIMB Attending: LOGAN TERAN Current LOS: 2 Anticipated DC Date: Planned Disposition: Home Primary Insurance: MEDICARE A & B Discharge Planning Comments: CM met with patient to complete initial dc planning assessment. CM educated patient on the CM role and verbal consent given by patient to complete assessment. Patient lives at home alone. At discharge patient plans to return and feels this is a safe discharge. States he drove himself here, he will drive himself home CM discussed availability of home health, rehab services, and medical equipment. Patient states he would like dietary instruction on diabetic diet, I ordered a dietary consult. Also states he needs new supplies from [facility]. I called [facility] and spoke with Arleen, they are unable to service him because of past financial issues. He would need to have his sleep study and chart notes faxed to a different company ([employer] and [facility] patient cannot accept him) Patient notified. . CM will continue to follow and will assist as needed with dc plans/needs. Pattern Room Attendant: Jen Duransmiley DCPIA - Discharge Planning Initial Assessment Updated by [id number]: Jen Duransmiley on 10/19/18 4:52 pm * Is the patient Alert and Oriented? Yes * How many steps to enter\\exit or inside your home? Ramp/0 * PCP Dr. Almeida * Pharmacy [facility] * Preadmission Environment Home Alone * ADLs Independent * Equipment CPAP * List name and contact numbers for known caregivers / representatives who currently or will assist patient after discharge: Rose Talbot - [facility] - [phone] Sofie Gaines - [facility] - [phone] * Verbal permission to speak to the caregivers and representatives has been obtained from the patient. Yes * Community resources currently utilized None * Additional services required to return to the preadmission environment? Yes * Can the patient safely return to the preadmission environment? Yes * Has this patient been hospitalized within the prior 30 days at any hospital? No Coverage Notice Reviewer: MJ Lamas Notice Issued Date-Time: 10/20/2018 12:24 Notice Type: Patient Choice Letter Notice Delivered To: Patient Relationship to Patient: Self Ticket Collector Name: Delivery Method: HAND - Hand Delivered Pam Days: Prior Verbal Notification: Recipient Understood Notice: Yes Recipient Signature: Yes Med Rec Note Co-signed by Attending: Coverage Notice Comment: TAMMI for [employer] Reviewer: [id number] Lamas Notice Issued Date-Time: 10/20/2018 14:36 Notice Type: IM Discharge Notice Notice Delivered To: Patient Relationship to Patient: Self Ticket Collector Name: Delivery Method: HAND - Hand Delivered Pam Days: Prior Verbal Notification: Recipient Understood Notice: Yes Recipient Signature: Yes Med Rec Note Co-signed by Attending: Coverage Notice Comment: IMM explained, signed, given, copy placed in MR Reviewer: MJ Lamas Notice Issued Date-Time: 10/20/2018 15:17 Notice Type: Patient Choice Letter Notice Delivered To: Patient Relationship to Patient: Ticket Collector Name: Delivery Method: HAND - Hand Delivered Pam Days: Prior Verbal Notification: Recipient Understood Notice: Yes Recipient Signature: Yes Med Rec Note Co-signed by Attending: Coverage Notice Comment: TAMMI FOR [facility] Last DP export: 10/20/18 1:28 p Patient Name: SERVANDO AGUILAR Page [id number] at 1526 All edits/amendments must be made on the electronic document DICTATION DATE: 10/20/18 1525 HIGH RISK CASE MANAGER: ANA 10/20/18 1525 RPT#: [id number] DC DATE: STATUS: ADM IN [facility] [address] [place] [address] END OF REPORT
--- NOTE | 2018-10-20 15:50 | NUR ---
DISCHARGE INSTRUCTIONS GIVEN. SEEMS TO UNDERSTAND INSTRUCTIONS. IV OUT TIP INTACT. TELEMETRY TAKEN OFF. NO SIGNS OF DISTRESS. LEFT WITH HOSPITAL STAFF TO GO HOME WITH HOME HEALTH SERVICES. DENIES ANY NEED BEFORE LEAVING
--- NOTE | 2018-10-21 09:07 | MORECARE ---
CASE MANAGEMENT DISCHARGE SUMMARY PATIENT: SERVANDO AGUILAR UNIT: [id number] ADM DATE: 10/17/18 AGE: 68 : 50 SEX: M ROOM/BED: D.2228 AUTHOR: GABBY,DOC PHYSICIAN: REFERRING PHYSICIAN: LOGAN TERAN MD DATE OF SERVICE: 10/21/18 Discharge Plan Patient Name: SERVANDO AGUILAR Facility: [facility]:[place] : 1950 Planned Disposition: Home Anticipated Discharge Date: Discharge Date: 10/20/2018 Expected LOS: 0 Initial Reviewer: [email or web address] Initial Review Date: 10/19/2018 Generated: 10/21/18 10:07 am Comments DCP- Discharge Planning Updated by [email or web address]: Jen Lamas on 10/20/18 2:[address] Discharge order received. [facility] for [facility]. I called Gurwinder with [facility], they can see accept him and will see him on Wednesday. Home today with home health. CM will continue to follow and assist with discharge planning/needs. DCP- Discharge Planning Updated by [id number]: Jen Lamas on 10/20/18 11:[address] Patient would like me to have [facility] help with getting a CPAP, he states that chart notes and sleep study should be available at Dr. Almeida's office. He states if they cannot help, "I will just get one over the internet." I called and spoke to Walt at [facility] and order and clinical faxed. Francia with wound care states Dr. Teran is going to discharge patient home with VIKRAM boots and he can leave them on until his Circ - boots come in on Wednesday or Wednesday. He states [facility] will come to home and cut VIKRAM boots off and instruct on Circ - boots. CM will continue to follow and assist with discharge planning//needs. DCP- Discharge Planning Updated by [email or web address]: Jen Lamas on 10/20/18 10:[address] I spoke with [facility], they state they had to order for his size and will be available Wednesday, or Wednesday "at the latest". I called Francia (wound care nurse), she is going to notify Dr. Teran for a plan. CM will continue to follow and assist with discharge planning/needs. DCP- Discharge Planning Updated by [email or web address]: Jen Cydney on 10/19/18 3:[address] I called [facility] and spoke to Roosevelt, he will come this evening to the hospital to fit patient with circ- aide boots per Dr. Teran's order. DCP- Discharge Planning Updated by [id number]: Jen Duransmiley on 10/19/18 3:[address] Patient Name: SERVANDO AGUILAR Admission Status: Elective Accout number: [id number] Admission Date: 10-17-2018 : 1950 Admission Diagnosis:CELLULITIS OF LEFT LOWER LIMB Attending: LOGAN TERAN Current LOS: 2 Anticipated DC Date: Planned Disposition: Home Primary Insurance: MEDICARE A & B Discharge Planning Comments: CM met with patient to complete initial dc planning assessment. CM educated patient on the CM role and verbal consent given by patient to complete assessment. Patient lives at home alone. At discharge patient plans to return and feels this is a safe discharge. States he drove himself here, he will drive himself home CM discussed availability of home health, rehab services, and medical equipment. Patient states he would like dietary instruction on diabetic diet, I ordered a dietary consult. Also states he needs new supplies from [facility]. I called [facility] and spoke with Arleen, they are unable to service him because of past financial issues. He would need to have his sleep study and chart notes faxed to a different company ([facility] [facility] patient cannot accept him) Patient notified. . CM will continue to follow and will assist as needed with dc plans/needs. Back Panel Padder: Jen Duransmiley DCPIA - Discharge Planning Initial Assessment Updated by [email or web address]: Jen Cydney on 10/19/18 4:52 pm * Is the patient Alert and Oriented? Yes * How many steps to enter\\exit or inside your home? Ramp/0 * PCP Dr. Almeida * Pharmacy [facility] * Preadmission Environment Home Alone * ADLs Independent * Equipment CPAP * List name and contact numbers for known caregivers / representatives who currently or will assist patient after discharge: Rose Talbot - [facility] - [phone] Sofie Gaines - [facility] - [phone] * Verbal permission to speak to the caregivers and representatives has been obtained from the patient. Yes * Community resources currently utilized None * Additional services required to return to the preadmission environment? Yes * Can the patient safely return to the preadmission environment? Yes * Has this patient been hospitalized within the prior 30 days at any hospital? No Coverage Notice Reviewer: [id number] Lamas Notice Issued Date-Time: 10/20/2018 12:24 Notice Type: Patient Choice Letter Notice Delivered To: Patient Relationship to Patient: Self Wire Mill Operator Name: Delivery Method: HAND - Hand Delivered Pam Days: Prior Verbal Notification: Recipient Understood Notice: Yes Recipient Signature: Yes Med Rec Note Co-signed by Attending: Coverage Notice Comment: TAMMI for Rejie Reviewer: [id number] Lamas Notice Issued Date-Time: 10/20/2018 14:36 Notice Type: IM Discharge Notice Notice Delivered To: Patient Relationship to Patient: Self Wire Mill Operator Name: Delivery Method: HAND - Hand Delivered Pam Days: Prior Verbal Notification: Recipient Understood Notice: Yes Recipient Signature: Yes Med Rec Note Co-signed by Attending: Coverage Notice Comment: IMM explained, signed, given, copy placed in MR Reviewer: [id number] Lamas Notice Issued Date-Time: 10/20/2018 15:17 Notice Type: Patient Choice Letter Notice Delivered To: Patient Relationship to Patient: Wire Mill Operator Name: Delivery Method: HAND - Hand Delivered Pam Days: Prior Verbal Notification: Recipient Understood Notice: Yes Recipient Signature: Yes Med Rec Note Co-signed by Attending: Coverage Notice Comment: [facility]MI FOR [facility] Last DP export: 10/20/18 2:26 p Patient Name: SERVANDO AGUILAR Page [id number] at 0907 All edits/amendments must be made on the electronic document DICTATION DATE: 10/21/18906 NATIONAL BUSINESS DIRECTOR: ANA 10/21/18 09 RPT#: [id number] DC DATE:10/20/18 STATUS: DIS IN [facility] [address] [place] [address] END OF REPORT
== END 2018-10-20 15:51 | disposition home health service (06) | DRG 300 ==
LOC: D.SDCHOLD 10:17 → D.MS 10:19
PROVIDERS: Family Medicine; ADMIT Surgery; ATTEND Surgery
PROC: 2W1MX6Z Compression of Left Lower Extremity using Pressure Dressing (ICD-10-PCS; principal; 2018-10-18)
DX: I82.813 Embolism and thrombosis of superficial veins of lower extremities, bilateral (principal); L03.116 Cellulitis of left lower limb; L03.115 Cellulitis of right lower limb; E11.65 Type 2 diabetes mellitus with hyperglycemia; Q82.0 Hereditary lymphedema; I89.0 Lymphedema, not elsewhere classified; I10 Essential (primary) hypertension; E11.69 Type 2 diabetes mellitus with other specified complication; I48.91 Unspecified atrial fibrillation; I25.10 Atherosclerotic heart disease of native coronary artery without angina pectoris; K21.9 Gastro-esophageal reflux disease without esophagitis; E66.9 Obesity, unspecified; Z68.39 Body mass index [BMI] 39.0-39.9, adult

== ENCOUNTER → 2019-04-27 09:14 | Outpatient (CLI) | payer MEDICARE ==
[2018-10-17 12:42] VITALS: BMI 40.8
[~2019-04-27 09:14] MED LIST changes: +FLOMAX0.4 MG PO; +NOVOLOG100 UNIT/1 SC; +TRESIBA FL100 UNIT/1 SC; +ZYRTEC10 MG PO
--- NOTE | 2019-05-01 11:13 | ST ---
PATIENT:SERVANDO AGUILAR MEDICAL RECORD: [id number] SEX: M LOCATION:[facility] ORDER #: ADMISSION DATE: 04/27/19 AGE OF PATIENT: 69 REFERRING PHYSICIAN: INTERPRETING PHYSICIAN: AHSAN CASTANEDA MD DATE OF SERVICE: 04/27/2019 INDICATION: Angina and coronary artery disease, shortness of breath, hyperlipidemia. He was exercised on standard Lexiscan protocol with 33 mCi of sestamibi injected at peak stress, 11 mCi used previously for rest images. FINDINGS: Gated SPECT reveals preserved ejection fraction at 52% with decreased thickening and brightening throughout the inferior segments. SPECT imaging Cardiolite was used as myocardial perfusion agent. There is a fixed perfusion defect inferiorly. This includes the basal, mid, apical, inferior segments; however, there is reversible ischemia anteriorly, this includes the basal, mid, apical anterior segments. OVERALL IMPRESSION: This is an intermediate to high risk abnormal nuclear stress test suggesting a previous inferior myocardial infarction with ongoing ischemia anteriorly suggestive of multivessel coronary artery disease. TRANSINT:[id number] Voice Confirmation ID: [id number] DOCUMENT ID: [id number] AHSAN CASTANEDA MD at 1113 CC: HAN RIVAS [id number] DICTATION DATE: 04/28/19 1300 SOLE LEVELER MACHINE: 04/28/191956 [facility] CLI 04/27/19 [id number] [place] [address]
== END | disposition home or self-care (01) ==
LOC: D.HCCARDIO 09:14
PROVIDERS: ATTEND Internal Medicine Interventional Cardiology
DX: I25.10 Atherosclerotic heart disease of native coronary artery without angina pectoris (principal)

== ENCOUNTER 2019-05-15 08:09 | Outpatient (CLI) | payer MEDICARE ==
[~2019-05-15] VITALS: Ht 175.3 cm; Wt 130.9 kg
--- NOTE | ~2019-05-15 | OP ---
PATIENT NAME: SERVANDO AGUILAR MEDICAL RECORD: [id number] :[birth year] LOCATION:D.CAT ADMISSION DATE: SURGEON: AHSAN CASTANEDA MD DATE OF OPERATION: 05/15/2019 PROCEDURES: 1. PTCA stent RCA. 2. PTCA stent left circumflex. 3. IFR. 4. Left heart catheterization. 5. Selective coronary angiography. 6. Left ventriculogram. INDICATION: Angina and coronary artery disease. PROCEDURE IN DETAIL: After informed consent was obtained and after detailed of risks, benefits as well as alternative therapies, the patient elected to proceed with angiogram and angioplasty. The right femoral area was prepped and draped in normal sterile fashion. Right femoral artery was cannulated via modified Seldinger technique with placement of 6-Mosotho sheath. All catheters exchanged through this sheath. FINDINGS: Left ventriculogram was performed in the standard 30-degree DONALD view reveals good cardiac wall motion throughout all segments. Overall ejection fraction estimated at 50% to 55%. SELECTIVE CORONARY ANGIOGRAPHY: 1. Left main is with no significant angiographic disease. 2. Left anterior descending has a previously placed stent. This is widely patent with no significant restenosis. No disease elsewise is significant throughout the LAD or its branches. 3. The left circumflex has 95% stenosis in the mid vessel. 4. The right coronary has 75% stenosis in the mid vessel. An IFR is abnormal at 0.829. PTCA STENT OF THE RCA: The stent used was a 3.0 x 15 mm Id[place]. Result was 0% residual stenosis. PTCA STENT OF THE LEFT CIRCUMFLEX: The stent used was a 2.25 x 30 mm [place]. Result was 0% residual stenosis. OVERALL IMPRESSION: Successful PTCA stent of the RCA and left circumflex, both going from 75% to 95% initial stenosis to 0% residual. TRANSINT:[id number] Voice Confirmation ID: [id number] DOCUMENT ID: [id number] AHSAN CASTANEDA MD CC: [id number] DICTATION DATE: 05/15/19 1010 RISK AND COMPLIANCE ANALYTICS DIRECTOR: 05/15/19 1442 DEP CLI 05/15/19 [facility] [address] [id number]
--- NOTE | ~2019-05-15 | HEMODYNAMI ---
PATIENT:SERVANDO AGUILAR MEDICAL RECORD: [id number] : 50 LOCATION:D.CAT ADMISSION DATE: 05/15/19 Generatedon:05/15/201910:14 Patient name: SERVANDO AGUILAR Patient #: [id number] SSN: [id number] : 1950 Date of study: 05/15/2019 Page: Of Hemodynamic Procedure Report Patient Data Patient Demographics Procedure consent was obtained First Name: SERVANDO Gender: Male Last Name: JEFF : 1950 [facility] Initial: R Age: 69 year(s) Patient #: [id number] Race: SSN: [id number] Additional ID: [id number] Contact details Address: [address] [place] [address] ROAD State: [place] City: [place] Zip code: [address] Past Medical History Allergies Allergen Reaction Date Comments Reported Other allergy 10/06/2017 Biaxin, Other allergy 05/15/2019 BIAXIN, LISINOPRIL Admission Admission Data Admission Date: 05/15/2019 Admission Time: 8:09 Lab Results Lab Result Date: 05/15/2019 Lab Result Time: 0:00 Biochemistry Name Units Result Min Max BUN mg/dl 19 --(----)*- 7 18 Creatinine mg/dl 1 --(--*-)-- 0.6 1.3 eGFR ml/min 79.52413 *-(----)-- 90 120 NONAFRICAN CBC Name Units Result Min Max Hematocrit % 40 -*(----)-- 42 54 Hemoglobin g/dl 12.6 -*(----)-- 13.5 17.5 Procedure Procedure Types Cath Procedure Diagnostic Procedure [facility] w/Coronaries FFR/IVUS FFR Initial Sedation Charges Moderate Sedation up to 15 minutes PCI Procedure Coronary Stent Coronary Stent Initial x2 Hemochron ACT Test Procedure Description Procedure Date Procedure Date: 05/15/2019 Procedure Start Time: 9:44 Procedure End Time: 10:08 Procedure Staff Name Function Romulo Rojas MD Performing Physician Lori Ortega RN Nurse Lupe Ball RT Scrub [facility] RT Monitor Procedure Data Cath Procedure Fluoroscopy Diagnostic fluoroscopy Total fluoroscopy Time: 7 time: 7 min min Diagnostic fluoroscopy Total fluoroscopy dose: 786 dose: 786 mGy mGy Contrast Material Contrast Material Type Amount (ml) Isovue 300 120 Entry Location Entry Primary Successful Side Size Upsize Upsize Entry Closure Succes sful Closure Location (Fr) 1 (Fr) 2 (Fr) Remarks Device Remarks Femoral Right 5 Fr 6 Fr Exoseal artery Short Estimated blood loss: 10 ml Diagnostic catheters Device Type Used For End Catheter Placement MULTIPACK Pigtail 5 Fr Procedure catheter MULTIPACK JL 4.0 5Fr Procedure catheter MULTIPACK 3DRC 5Fr Procedure catheter Procedure Complications No complications Procedure Medications Medication Administration Route Dosage 0.9% NaCl I.V. 100 ml/hr Oxygen etCO2 Nasal cannula 2 l/min Lidocaine 2% added to field 20 Heparin Flush Bag added to field 2 bags (1000units/500ml NS) Versed I.V. 2 mg Fentanyl I.V. 50 mcg Fentanyl I.V. 50 mcg Heparin Bolus I.V. 4000 units Integrilin (Bolus I.V. 11.3 ml 2mg/ml) Integrilin (Bolus wasted 8.7 ml 2mg/ml) Plavix P.O. 600 mg Hemodynamics Rest HGB: 12.6 (g/dl) Heart Rate: 54 (bpm) Snapshots Pre Cath Intra NCS Post Cath Vital Signs Time Heart Resp SPO2 etCO2 NIBP (mmHg) Rhythm Pain Sedation Rate (ipm) (%) (mmHg) Status Level (bpm) 9:32:40 53 20 99 36.7 157/96(130) SB 0 (11) 10(A) , No pain 9:37:06 54 10 96 35 129/76(104) SB 0 (11) 10(A) , No pain 9:41:22 54 14 96 17.5 123/80(111) SB 0 (11) 10(A) , No pain 9:45:38 58 13 97 43.6 125/80(107) SB 0 (11) 10(A) , No pain 9:50:03 51 17 98 48.9 125/73(94) SB 0 (11) 9(A) , No pain 9:54:12 53 13 96 42.8 100/78(93) SB 0 (11) 9(A) , No pain 9:58:24 53 14 97 42.8 109/75(98) SB 0 (11) 9(A) , No pain 10:02:40 57 15 98 43.6 111/73(85) SB 0 (11) 9(A) , No pain 10:06:58 54 12 97 45.9 113/74(100) SB 0 (11) 10(A) , No pain Medications Time Medication Route Dose Verified Delivered Reason Notes Effectiveness by by 9:31:37 0.9% NaCl I.V. 100 Romulo Lori used for ml/hr Bob Ortega library director 9:31:44 Oxygen etCO2 2 Romulo Lori used for Nasal l/min Bob Ortega procedure cannula RN 9:31:48 Lidocaine 2% added 20ml Romulo Romulo for local to vial Bob Rojas MD anesthetic field 9:31:52 Heparin Flush added 2 Romulo Romulo used for Bag to bags Bob Rojas MD procedure (1000units/500ml field NS) 9:43:03 Fentanyl I.V. 50 Romulo Lori for sedation mcg Bob Ortega RN 9:43:41 Versed I.V. 2 mg Romulo Lori for sedation Bob Ortega RN 9:47:12 Fentanyl I.V. 50 Romulo Lori for sedation mcg Bob Ortega RN 9:55:01 Heparin Bolus I.V. 4000 Romulo Lori for verifi ed units Bob Ortega anticoagulation with Dr. BRIANDA Rojas 9:55:14 Integrilin I.V. 11.3 oRmulo Lori for (Bolus 2mg/ml) ml Bob Ortega antiplatelet RN therapy 9:56:47 Integrilin wasted 8.7 Romulo Loir for (Bolus 2mg/ml) ml Bob Ortega antiplatelet RN therapy 9:57:00 Plavix P.O. 600 Romulo Lori for mg Bob Ortega antiplatelet RN therapy Procedure Log Time Note 9:12:20 Lori Ortega RN sent for patient. Start room use. 9:12:21 Time tracking: Regular hours (M-F 7:00 - 5:00) 9:12:29 Plan of Care:Hemodynamics will remain stable., Cardiac rhythm will remain stable., Comfort level will be maintained., Respiratory function will remain adequate., Patient/ family verbilizes understanding of procedure., Procedure tolerated without complication., Recovers from procedure without complications.. 9:23:39 Procedure Status Elective Heart Cath (OP). 9:23:42 Signed procedure consent form obtained from patient. 9:25:06 Patient received from Pre/Post Procedure Room to [facility] 3 Alert and oriented. Tansferred to table in Supine position. 9:25:07 Warm blankets applied, and vega hugger turned on for patient comfort. 9:25:07 Warm blankets applied, and vega hugger turned on for patient comfort. 9:25:08 Correct patient and procedure confirmed by team. 9:25:10 ECG and BP/O2 sat monitors applied to patient. 9:31:28 Vital chart was started 9:31:37 0.9% NaCl 100 ml/hr I.V. was administered by Lori Ortega RN; used for procedure; Verbal order read back and verified. 9:31:44 Oxygen 2 l/min etCO2 Nasal cannula was administered by Lori Ortega RN; used for procedure; Verbal order read back and verified. 9:31:48 Lidocaine 2% 20ml vial added to field was administered by Romulo Rojas MD; for local anesthetic; Verbal order read back and verified. 9:31:52 Heparin Flush Bag (1000units/500ml NS) 2 bags added to field was administered by Romulo Rojas MD; used for procedure; Verbal order read back and verified. 9:33:04 Baseline sample Acquired. 9:33:06 Rhythm: sinus bradycardia 9:33:08 Full Disclosure recording started 9:33:16 H&P Date Dictated: 04/20/2019 Within 30 days and on chart., H&P Addendum completed by physician on day of procedure. (MUST COMPLETE FOR ALL OUTPATIENTS). 9:33:17 Pre-procedure instructions explained to patient. 9:33:18 Pre-op teaching completed and patient verbalized understanding. 9:33:34 Family in patients room. 9:33:35 Patient NPO since Midnight. 9:33:54 Patient allergic to Other allergyBIAXIN, LISINOPRIL 9:33:56 Is patient on blood thinner?No 9:33:58 Patient diabetic? Yes. 9:34:00 If diabetic: On Metformin? Yes 9:34:02 If on Metformin: Last Dose? 05/14/2019 9:34:05 Previous problem with sedation/anesthesia? No ? 9:34:05 Snore? Yes 9:34:06 Sleep apnea? Yes 9:34:07 Deviated septum? No 9:35:27 Opens mouth fully? Yes 9:35:27 Sticks out tongue? Yes 9:35:31 Airway obstruction? No ? 9:35:34 Dentures? No ? 9:35:39 Pre procedure: right dorsailis pedis pulse 1+ Palpable, but thready & weak; easily obliterated 9:35:41 Patient pain scale 0/10 ?. 9:35:46 IV patent on arrival in right antecubital with 0.9% NaCl at [facility]. 9:37:21 Lab Result : BUN 19 mg/dl 9:37:21 Lab Result : Creatinine 1 mg/dl 9:37:21 Lab Result : eGFR NONAFRICAN 79.19559 ml/min 9:37:21 Lab Result : Hemoglobin 12.6 g/dl 9:37:21 Lab Result : Hematocrit 40 % 9:37:24 Lab results completed and on chart. 9:37:44 Stress Test: yes; abnormal MULTIVESSEL 9:37:52 Right groin area was prepped with chlora-prep and draped in sterile fashion 9:37:52 Alarms reviewed by R. N. 9:37:53 Sharps counted by scrub and verified by R.N. 9:38:11 Use device set Femoral Dx 9:38:12 ACIST Syringe (75445) opened to sterile field. 9:38:13 Bag Decanter (2002) opened to sterile field. 9:38:14 ACIST Hand Control (25303) opened to sterile field. 9:38:14 ACIST Manifold (22176) opened to sterile field. 9:38:15 Tegaderm 4 x 4 (1626W) opened to sterile field. 9:38:16 Medline Cath Pack ([id number]) opened to sterile field. 9:38:17 DIAGNOSTIC Multipack 5Fr catheter set (SE8943) opened to sterile field. 9:38:18 SHEATH 5FR [place] (VYO338) opened to sterile field. 9:38:19 EMERALD Guide Wire (431-742) opened to sterile field. 9:41:35 Risk of Mortality: .1 9:41:47 Risk of blood transfusion: .1 9:41:50 Risk of NIC: .4 9:42:54 --------ALL STOP TIME OUT------ 9:42:54 Final Timeout: patient, procedure, and site verified with staff and physician. All members of the team are in agreement. 9:42:56 Right groin site verified by team. 9:43:00 Fire Safety Assessment: A--An alcohol-based skin anteseptic being used preoperatively., C--Open oxygen or nitrous oxide is being used., D--An ESU, laser, or fiber-optic light is being used. 9:43:03 Fentanyl 50 mcg I.V. was administered by Lori Ortega RN; for sedation; Verbal order read back and verified. 9:43:04 Physical assessment completed. ASA score P 3 - A patient with severe systemic disease as per Romulo Rojas MD. 9:43:08 2) 60-89 Mildly reduced kidney function, and other findings (as for stage 1) point to kidney disease. 9:43:11 Maximum allowable contrast dose (3.7 X eGFR X 0.75)219 ml. 9:43:14 Sedation plan: IV Moderate Sedation Medication:Versed, Fentanyl 9:43:41 Versed 2 mg I.V. was administered by Lori Ortega RN; for sedation; Verbal order read back and verified. 9:44:36 Procedure started. 9:44:41 Zero performed for pressure channel P1 9:44:53 Local anesthetic to right femoral artery with Lidocaine 2% by Romulo Rojas MD.INITIAL ACCESS ONLY 9:45:15 A 5 Fr sheath was inserted into the Right Femoral artery 9:46:52 A MULTIPACK Pigtail 5 Fr catheter was advanced over the wire and used for Procedure. 9:47:08 LV gram done using DONALD 9:47:10 Injector settings: Ml/sec: 10, Volume: 20, 9:47:12 Fentanyl 50 mcg I.V. was administered by Lori Ortega RN; for sedation; Verbal order read back and verified. 9:47:45 EF : 50 % 9:47:46 Catheter removed. 9:47:51 A MULTIPACK JL 4.0 5Fr catheter was advanced over the wire and used for Procedure. 9:48:37 LCA angiography performed. 9:49:09 Catheter removed. 9:50:23 SHEATH 6FR [place] ([id number]) opened to sterile field. 9:50:24 INFLATOR Merit BasixCompak (ZL5790) opened to sterile field. 9:50:25 [place] Verrata Plus pressure wire ([id number]) opened to sterile field. 9:50:25 GUIDE 6FR AR 2.0 catheter ([id number]) opened to sterile field. 9:50:32 A MULTIPACK 3DRC 5Fr catheter was advanced over the wire and used for Procedure. 9:50:34 RCA angiography performed. 9:50:35 Catheter removed. 9:51:17 Zero performed for pressure channel P1 9:52:00 Proceeding to intervention. 9:52:43 AMPLATZ Super Stiff 75cm wire ([id number]) opened to sterile field. 9:52:49 Sheath upsized to a 6 Fr Short. 9:53:05 AMPLATZ USED TO ADVANCED SHEATH 9:53:07 6 Fr AR 2 guide catheter was inserted over the wire 9:53:29 CHOICE PT Extra Support 182cm wire ([id number]) opened to sterile field. 9:53:56 FFR/IFR wire advanced. 9:54:50 Wire advanced across lesion. 9:55:01 Heparin Bolus 4000 units I.V. was administered by Lori Ortega RN; for anticoagulation; verified with Dr. Rojas Verbal order read back and verified. 9:55:14 Integrilin (Bolus 2mg/ml) 11.3 ml I.V. was administered by Lori Ortega RN; for antiplatelet therapy; Verbal order read back and verified. 9:55:31 mRCA lesion measured at .81 with IFR 9:55:50 Pre PCI Site: Three Affiliated mRCA has 75% stenosis. 9:56:47 Integrilin (Bolus 2mg/ml) 8.7 ml wasted was administered by Lori Ortega RN; for antiplatelet therapy; Verbal order read back and verified. 9:56:57 Place stent Inflation Number: 1 A JAZ RX 3.0 x 15 stent ([id number]) was prepped and advanced across the Mid RCA . The stent was deployed at 13 RENNY for 0:00 (min:sec) . 9:57:00 Plavix 600 mg P.O. was administered by Lori Ortega RN; for antiplatelet therapy; Verbal order read back and verified. 9:57:13 Stent catheter was removed intact over wire. 9:57:14 Wire removed. 9:57:15 Guide catheter removed. 9:57:33 GUIDE 6FR EBU 4.0 guide catheter ([id number]) opened to sterile field. 9:57:52 Pre PCI Site: Three Affiliated mCirc has 95% stenosis. 9:58:42 CHOICE ES 182 wire advanced. 9:59:39 Wire advanced across lesion. 10:00:31 Inflate balloon Inflation number: 1 A Mozec Rx 2.0 x 15 balloon was prepped and advanced across the Mid CX , then inflated to 13 RENNY for 0:00 (min:sec) . 10:00:42 Balloon removed over the wire. 10:02:32 Place stent Inflation Number: 2 A JAZ RX 2.25 x 30 stent ([id number]) was prepped and advanced across the Mid CX . The stent was deployed at 15 RENNY for 0:00 (min:sec) . 10:02:52 Stent catheter was removed intact over wire. 10:03:15 ACT drawn and resulted at 280 seconds. (normal therapeutic range 180-240 seconds). 10:04:12 Inflation number: 3 The Mozec Rx 2.0 x 15 balloon was reinflated across the Mid CX , to 11 RENNY for 0:00 (min:sec) . 10:04:33 Balloon removed over the wire. 10:04:33 Wire removed. 10:04:34 Guide catheter removed. 10:04:45 EXOSEAL 6Fr (EX600) opened to sterile field. 10:04:55 Sheath removed intact; hemostasis achieved with Exoseal to the Right Femoral artery. 10:05:03 Procedure ended.(Physican Out) 10:06:03 Fluoroscopy time 07.00 minutes. 10:06:11 Flurop Dose total: 786 10:06:11 Fluoroscopy dose: 786 mGy 10:06:18 Dose Area Product 4816.28 mGy/cm. 10:06:21 Contrast amount:Isovue 300 120ml. 10:06:23 Maximum allowable dose exceeded? No. 10:06:24 Sharps counted by scrub and verified by R.N. 10:06:28 Post-op/insertion site Right Femoral artery dressed using a 4 x 4 and Tegaderm. 10:06:31 Post-procedure physical assessment completed. ASA score P 2 - A patient with mild systemic disease as per Romulo Rojas MD. 10:06:34 Post procedure rhythm: unchanged. 10:06:36 Estimated blood loss: 10 ml 10:06:37 Post procedure instruction explained to patient.Patient verbalizes understanding. 10:06:41 Patient needs reinforcement of post procedure teaching. 10:07:19 Procedure type changed to Cath procedure, Diagnostic procedure, LHC, C w/Coronaries, FFR/IVUS, FFR Initial, Sedation Charges, Moderate Sedation up to 15 minutes, PCI procedure, Coronary Stent, Coronary Stent Initial x2, Hemochron ACT Test 10:08:26 Procedure and supply charges have been captured, reviewed, submitted and are correct. 10:08:27 Procedure Complication : No complications 10:08:29 Vital chart was stopped 10:08:31 [facility] Findings: MVD- PCI performed (see procedure note) 10:08:33 Operative report dictated upon procedure completion. 10:08:33 See physician's report for complete and final results. 10:08:35 Report given to Pre/Post Procedure Room. 10:08:38 Patient transfered to Pre/Post Procedure Room with Bed. 10:08:40 Procedure ended. 10:08:40 Full Disclosure recording stopped 10:08:49 ACC-PCI Only Patient was given prescriptions, or instructed by Romulo Rojas MD to start/continue the following medications upon discharge: Plavix 10:08:50 End room use (Document Last) 10:12:41 End room use (Document Last) 10:13:17 End room use (Document Last) Intervention Summary Intervention Notes Time ActionType Lesion and Equipment Used Action# Pressure Duration Attributes 9:56:57 Place stent Mid RCA JAZ RX 3.0 x 1 13 00:00 15 stent ([id number]) 10:00:31 Inflate Mid CX Mozec Rx 2.0 x 1 13 00:00 balloon 15 balloon 10:02:32 Place stent Mid CX JAZ RX 2.25 x 2 15 00:00 30 stent ([id number]) 10:04:12 Reinflate Mid CX Mozec Rx 2.0 x 3 11 00:00 balloon 15 balloon Device Usage Item Name Manufacture Quantity Catalog Number Hospital Part Current Minimal Lot# / Charge Number Stock Stock Serial# Code ACIST Syringe Acist 1 85710 267214 273341 421602 20 (24590) Medical Systems Inc Bag Decanter Microtek 1 610519 82352 297530 5 (2001S) Medical Inc. ACIST Hand Acist 1 95673 782288 270761 450583 5 Control Medical (55343) Systems Inc ACIST Manifold Acist 1 32821 920033 528653 562809 5 (69210) Medical Systems Inc Tegaderm 4 x 4 3M 1 1626W 533105 953839 240595 5 (1626W) Medline Cath Medline 1 [id number] 770542 88896 000744 5 Pack ([id number]) DIAGNOSTIC Cardinal 1 SD5942 575786 86655 369247 30 Multipack 5Fr Health catheter set (OC8617) SHEATH 5FR Terumo 1 KJC576 380196 503633 369111 5 [place] (KPK530) EMERALD Guide Cardinal 1 502-455 254989 114844 010846 5 Wire (502-455) Health MULTIPACK Cardinal 1 473034 5 Pigtail 5 Fr Health catheter MULTIPACK JL Cardinal 1 122595 5 4.0 5Fr Health catheter MULTIPACK 3DRC Cardinal 1 251736 5 5Fr catheter Health SHEATH 6FR Terumo 1 DCL542 880065 432753 039817 40 [place] (TBS028) INFLATOR Merit Merit 1 AX5337 142321 959456 591491 15 [facility] (MF7304) [place] 1 97595E 640103 642449750 262638 5 Verrata Plus pressure wire (85069L) GUIDE 6FR AR Medtronic 1 [id number] 131184 92623 047081 1 2.0 catheter (VX0TE67) AMPLATZ Super Durant 1 [id number] 382147 361022 270225 5 Stiff 75cm Scientific wire ([id number]) CHOICE PT Durant 1 [id number] 986523 788401 558546 5 Extra Support Scientific 182cm wire ([id number]) JAZ RX 3.0 x Medtronic 1 [id number] 700814 9227703 935283 5 [id number] 15 stent ([id number]) GUIDE 6FR EBU Medtronic 1 [id number] 664192 15790 343729 1 4.0 guide catheter (IV2HEO34) Mozec Rx 2.0 x Cardinal 1 [id number] 628551 99352 577199 5 UMOD79 15 balloon Health JAZ RX 2.25 x Medtronic 1 [id number] 603977 3697176 388361 5 [id number] 30 stent ([id number]) EXOSEAL 6Fr Cardinal 1 EX600 459158 627640 402772 10 (EX600) Health Signature Audit [place] Stage Time Signature Unsigned Intra-Procedure 05/15/2019 Frieda Cano 10:12:41 AM RT(R) Intra-Procedure 05/15/2019 Lori Ortega 10:13:17 AM RN Intra-Procedure 05/15/2019 Romulo Rojas 10:14:31 AM [place] [address] [place] [address]
[2019-05-15 08:53] VITALS: BP 149/80; Ht 175.3 cm; Wt 130.9 kg
[2019-05-15 09:08] LABS: BASOPHILS 0.6 % (0-2); EOSINOPHILS 6.1 % (0-7); HEMOGLOBIN 12.6 g/dL (13.5-17.5); IMMATURE GRANULOCYTES 0.2 % (0-5); LYMPHOCYTES 15.6 % (15-50); MCH 26.8 pg (26.0-34.0); MCHC 31.5 g/dL (31.0-37.0); MCV 85.1 fL (80.0-100.0); MEAN PLATELET VOLUME 9.8 fL (7.4-10.4); MONOCYTES 7.1 % (2-11); NEUTROPHILS 70.4 % (40-80); RDW 15.1 % (11.5-14.5); WBC 6.2 10x3/uL (4.8-10.8)
[2019-05-15 09:11] LABS: PLATELET COUNT 186 10x3/uL (130-400)
[2019-05-15 09:26] LABS: ALT (SGPT) 21 U/L (10-68); CALC OSMOLALITY 287 mosm/kg (275-300); CALCIUM 8.9 mg/dL (8.5-10.1); CARBON DIOXIDE 32.7 mmol/L (21.0-32.0); CHLORIDE - SERUM 103 mmol/L (98-107); CHOL - HDL RATIO 4.5 ratio (2.3-4.9); CHOLESTEROL, TOTAL 169 mg/dL (0-200); HDL CHOLESTEROL 38 mg/dL (32-96); INR 1.05 (0.85-1.17); LDL CHOLESTEROL 108 mg/dL (0-100); LDL-HDL RATIO 2.8 ratio (1.5-3.5); POTASSIUM - SERUM 3.9 mmol/L (3.5-5.1); PROTIME 13.6 SECONDS (11.6-15.0); SODIUM 139 mmol/L (136-145); TRIGLYCERIDE 116 mg/dL (30-200); UREA NITROGEN 19 mg/dL (7-18); eGFR NON AFRICAN AMERICAN 79 mL/min (90-120)
[2019-05-15 09:27] LABS: GLUCOSE 241 mg/dL (74-106)
--- NOTE | 2019-05-15 10:25 | NUR ---
PT RECEIVED VIA STRETCHER FROM INFRASTRUCTURE DIRECTOR FOR RECOVERY. PT SLEEPING BUT AWAKES TO VERBAL STIMULI. PT DENIES PAIN OR DISCOMFORT, C/O HEARTBURN, SIPS OF WATER GIVEN AND PT TOOK HIS OWN OMEPERAZOLE. IV PATENT INFUSING VIA R ARM PER ORDERS. R GROIN W 6FR EXOCELE, DRESSING CDI NO BLEEDING OR S/S HEMATOMA NOTED. LEG PINK AND WARM, PEDAL PULSES PALPABLE. PT INSTRUCTED TO KEEP HEAD FLAT AND LEG STRAIGHT, HE VERBALIZED UNDERSTANDING. DAUGHTERS AT BS. CALL LIGHT IN REACH . PT PLACED ON CARDIAC MONITORS AND O2 VIA NC AT 2L. HR SB AT 56, BP 132/79, RR 13, SAT 98.
[2019-05-15] MEDS ORDERED: PLAVIX75 MG PO (10:29)
--- NOTE | 2019-05-15 10:45 | NUR ---
PT RESTING COMFORTABLY. PT STATES HEARTBURN IS BETTER, SIPS OF SPRITE GIVEN. R GROIN SOFT, DRESSING REMAINS CDI NO BLEEDING OR S/S HEMATOMA NOTED. HR 53, BP 126/71, RR 15, SAT 99. CALL LIGHT IN REACH, DAUGHTER REMAINS AT BS.
--- NOTE | 2019-05-15 11:30 | NUR ---
PT RESTING W/O COMPLAINTS. TOLERATING PO FLUIDS W/O NAUSEA. VSS. R GROIN SOFT, DRESSING CDI NO BLEEDING OR S/S HEMATOMA NOTED. CALL LIGHT IN REACH
--- NOTE | 2019-05-15 12:00 | NUR ---
DR CASTANEDA AT , SPOKE W PT AND DAUGHTER REGARDING PROCEDURE RESULTS AND PLAN OF CARE. R GROIN SOFT, DRESSING CDI NO BLEEDING OR SWELLING NOTED. PEDAL PULSES PALPABLE. VSS. CALL LIGHT IN REACH
--- NOTE | 2019-05-15 12:30 | NUR ---
PT RESTING W/O COMPLAINTS. R GROIN SOFT, DRESSING REMAINS CDI NO BLEEDING OR S/S HEMATOMA NOTED. PEDAL PULSES PALPABLE. VSS. CALL LIGHT IN REACH. DAUGHTER AT BS.
--- NOTE | 2019-05-15 13:20 | NUR ---
R GROIN SOFT, DRESSING CDI NO BLEEDING OR S/S HEMATOMA NOTED. HOB ELEVATED SLIGHTLY, SANDWICH TRAY SERVED. VSS. PT DENIES PAIN OR NEEDS AT THIS TIME. DAUGHTER AT BEDSIDE, CALL LIGHT IN REACH
--- NOTE | 2019-05-15 13:55 | NUR ---
DISCHARGE INSTRUCTIONS REVIEWED W PT AND DAUGHTER, BOTH VERBALIZED UNDERSTANDING. PT INSTRUCTED ON IMPORTANCE OF GETTING PLAVIX FILLED AND START TOMORROW, HE VERBALIZED UNDERSTANDING. IV REMOVED W CATH INTACT, MONITORS AND O2 REMOVED. R GROIN SOFT, NO BLEEDING OR S/S HEMATOMA NOTED. PT UP TO DRESS FOR DISCHARGE
--- NOTE | 2019-05-15 14:17 | NUR ---
PT TO BR VIA WC, VOIDING W/O DIFFICULITY. PT THEN DISCHARGED VIA WC TO DAUGHTER WAITING IN PRIVATE VEHICLE. PT HAD ALL BELONGINGS AND DISCHARGE PAPERWORK.
== END 2019-05-15 14:15 | disposition home or self-care (01) ==
LOC: D.CATH 08:09
PROVIDERS: ATTEND Internal Medicine Interventional Cardiology
DX: I25.119 Atherosclerotic heart disease of native coronary artery with unspecified angina pectoris (principal); R06.09 Other forms of dyspnea; E78.5 Hyperlipidemia, unspecified; I48.0 Paroxysmal atrial fibrillation; R07.9 Chest pain, unspecified; E11.9 Type 2 diabetes mellitus without complications; Z79.84 Long term (current) use of oral hypoglycemic drugs; I10 Essential (primary) hypertension; R94.39 Abnormal result of other cardiovascular function study
CPT/HCPCS: 93458; 93571; C9600 ×2